=== PATIENT | male | born 1945 | race American Indian/Alaskan Native ===

== ENCOUNTER 2021-04-29 04:51 | Inpatient (IN) | payer MEDICARE, OTHER ==
[~2021-04-29] VITALS: Ht 167.6 cm; Wt 96.9 kg
[2021-04-29] MEDS ORDERED: LASIX40 MG PO (05:24)
[2021-04-29] MEDS ORDERED: METFORMIN HCL500 MG PO (05:25)
[2021-04-29] MEDS ORDERED: DILTIAZEM 24HR120 MG PO (05:25)
[2021-04-29] MEDS ORDERED: SILDENAFIL20 MG PO (05:26)
[2021-04-29] MEDS ORDERED: VITAMIN D325 MC2 PO (05:26)
[2021-04-29] MEDS ORDERED: TAMSULOSIN HCL0.4 MG PO (05:27)
[2021-04-29] MEDS ORDERED: LIPITOR10 MG PO (05:27)
[2021-04-29] MEDS ORDERED: HYDROCODON-ACE1 EA10 PO (06:15)
[2021-04-29] MEDS ORDERED: ONDANSETRON ODT8 MG PO (06:15)
--- NOTE | 2021-04-29 08:25 | NUR ---
PATIENT ARRIVED IN ROOM #115 AT 0825 VIA STRETCHER FROM ER WITH NURSING TOOL DESIGN DRAFTER. 3 REFRIGERATION REPAIR SUPERVISOR ON SHEET TO THE [place]. PATIENT HAVING ACTIVE DRY HEAVES ON ARRIVAL WHICH RESOLVED SPONTANEOUSLY. PATIENT ALSO HAVING PAIN IN HIS LEFT SHOULDER ON AARIVAL WHICH ALSO RESOLVED AFTER MOVING PATIENT TO THE BED. PATIENT STANDS AT THE EDGE OF THE BED TO USE URINAL AND PATIENT IS WEARING HIS OWN ATTENDS. VS AR STABLE AND PATIENT'S DAUGHTER LAURY OLIVARES GIVING MOST OF THE PATIENT'S HX PATIENT IS REALLY TIRED AND WANTING TO SLEEP. PATIENT EDUCATED ON HOW TO USE THE CALL LIGHT AND HE VERBALIZED UNDERSTANDING. PHARMACY TOOK MEDS AND BROUGHT THEM BACK TO THE ROOM FOR MED REC. CALL LIGHT IS IN REACH. PATIENT IN SR ON AND 02 SATS = 94-100% ON 6L/NC.
[2021-04-29] MEDS ORDERED: NITROGLYCERIN0.4 MG SL (09:15)
--- NOTE | 2021-04-29 10:44 | NUR ---
IN TALKIG WITH PATIENT AT THIS TIME.
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
--- NOTE | 2021-04-29 13:05 | NUR ---
PATIENT STARTED VOMITING WHILE I WAS STARTING HIS IV MEDS. 4MG IV ZOFRAN GIVEN. NAUSEA SUBSIDED AND PATIENT TOOK ALL PO MEDS INCLUDING PRN COUGH MEDS AND PO PAIN MEDS FOR 5/10 LOW BACK PAIN LEFT SHOULDER PAIN. PATIENT BACK IN BED RESTING AT THIS TIME. CALL LIGHT IN REACH.
--- NOTE | 2021-04-29 14:34 | NUR ---
CHECKING ON PATIENT'S PAIN AND NAUSEA. PAIN IN LOW BACK/LEFT SHOULDER DOWN TO A 2/10, BUT PATIENT HAS A AMIN NOW. PATIENT'S NAUSEA REMAINS GONE. VS ARE STABLE. PATIENT ON HIS RIGHT SIDE AT THIS TIME. PATIENT DENIES ANY OTHER CARE NEEDS AT THIS TIME. CALL LIGHT IS IN REACH.
--- NOTE | 2021-04-29 15:05 | NUR ---
PATIENT LAYING ON HIS LEFT SIDE NOW TURNED FROM HIS RIGHT SIDE. O2 SAT 94% ON 3L/NC HR=60 ON TELE. PATIENT HAS NO CURRENT CARE NEEDS.
--- NOTE | 2021-04-29 15:28 | NUR ---
PATIENT'S DAUGHTER LAURY CALLED AND WAS UP DATED ON PATIENT'S STATUS. PATIENT SUMMERS BEEN TELLING THIS RN THAT HE REALLY WOULD RATHER NOT GO BACK TO LIVE IN HIS SONS HOUSE BECAUSE HE THINKS HIS SON SHOULD BE MORE CARING AND HE WON'T LET THE PATIENT HAVE ANY KIND OF HEATER IN THE HOUSE AND PATIENT IS ALWAYS COLD.
--- NOTE | 2021-04-29 15:51 | NUR ---
THIS RN IN TO CHECK ON PATIENT AND PATIENT SAYS,"MY HEAD IS FEELING BETTER." SO PATIENT'S HEADACHE IS IMPROVING. TALKED WITH PATIENT ABOUT PRONING AND HE FEELS HE WILL BE ABLE TO TRY THAT IN AWHILE. PATIENT IS IN SEMIFOWLERS POSITION AT THIS TIME HAVING TURNED FROM HIS LEFT SIDE. O2 SAT=92% ON 3L/NC. URINAL EMPTIED AND GIVEN BACK TO PATIENT. PATIENT DENIES ANY OTHER CARE NEEDS AT THIS TIME. CALL LIGHT IS IN REACH.
--- NOTE | 2021-04-29 16:27 | NUR ---
RT TIED UP IN ER SO THIS RN GAVE PATIENT HIS NEB TREATMENT AND I NORCO FOR CONTINUED BACK PAIN 06/16 AT THIS TIME. PATIENT TRIED TO PRONE, BUT WAS TOO UNCOMFORTABLE AND IS ON HIS LEFT SIDE AT THIS TIME. PATIENT HAS NO OTHER CARE NEEDS OR REQUESTS AT THIS TIME. INFORMED PATIENT HIS DAUGHTER HAD CALLED OT CHECK ON HIM AND GAVE PATIENT HIS CELL PHONE REQUESTED. CALL LIGHT IS IN REACH.
--- NOTE | 2021-04-29 17:36 | NUR ---
BLOOD SUGAR CHECKED. PT SITTING UP IN BED EATING DINNER. NO FURTHER NEEDS AT THIS TIME. CALL LIGHT IN REACH.
--- NOTE | 2021-04-29 18:16 | NUR ---
PATIENT CALLED AND HAD VOIDED ON THE FLOOR MISSING HIS URINAL. THIS RN IN AND CLEANED UP THE FLOOR AND SET PATIENT UP TO EAT ON THE EDGE OF THE BED. THIS RN GAVE THE EVENING INSULIN. PATIENT WANTING SOME JUICE AND NURSING DIRECTOR SMB SALES GOING TO LOOK FOR LOW CALORIE JUICE FOR THE PATIENT. PATIENT HAD NO OTHER CARE NEEDS AT THIS TIME. CALL LIGHT IS IN REACH.
--- NOTE | 2021-04-29 19:10 | NUR ---
RECEIVED REPORT FROM DAY SHIFT RN. PATIENT IS RESTING IN BED WATCHING TV. NO NEEDS NOTED. CALL LIGHT IN REACH.
--- NOTE | 2021-04-29 20:45 | NUR ---
PATIENT ASSESMENT COMPLETED. PATIENTS VITALS TAKEN AND RECORDED. PATIENT REMAINS ON 3L VIA NC. PATIENTS URINAL EMPTIED. INTAKE AND OUTPUT RECORDED. PATIENTS SCHEDULED MEDICATIONS GIVEN PER ORDER. PATIENT REPORTS HEADACHE. PATIENT GIVEN PRN MEDICATION GIVEN FOR HEADACHE. PATIENT REQUEST MEDICATION FOR SLEEP, GIVEN PRN MEDICATION FOR SLEEP PER ORDER. PATIENT IS SL AND IV FLIUSHES WELL. PATIENT DENIES ANY SOB. FRESH ICE WATER PROVIDED. CALL LIGHT IN REACH.
--- NOTE | 2021-04-29 22:55 | NUR ---
PATIENT IS RESTING IN BED WITH EYES CLSOED, RR 18. CALL LIGHT IN REACH. PATIENT REMAINS ON 3L VIA NC AND IS 90% ON TELE #6
--- NOTE | 2021-04-30 00:48 | NUR ---
PATIENT IS RESTING IN BED WITH EYES CLOSED, TELE READINGS ARE WNL. PATIENT REMAINS ON 3L VIA NC. CALL LIGHT IN REACH.
--- NOTE | 2021-04-30 02:30 | NUR ---
V/S AND I&O'S TAKEN AND CHARTED BY PRIMARY RN MELANY. FRESH WATER AND CRACKERS PROVIDED PER PATIENT'S REQUEST.
--- NOTE | 2021-04-30 02:38 | NUR ---
PATIENTS VITALS TAKEN AND RECORDED. URINAL EMPTIED. INTAKE AND OUTPUT RECORDED. PATIENT DENIES ANY SOB. PATIENT REMAINS ON 3L VIA NC. PATIENT DENIES ANY PAIN AND HEADACHE HAS RESOLVED. PATIENTS ICE WATER REFRESHED AND CRACKERS PROVIDED PER PATIENT REQUEST. PATIENT DENIES ANY FURTHER NEEDS. CALL LIGHT IN REACH.
--- NOTE | 2021-04-30 03:58 | NUR ---
PATIENT CALLED AND REPORTED A HEADACHE, PRN MEDICATION GIVEN PER ORDER. PATIENT DENIES ANY SOB AND REMAINS ON 3L VIA NC. NO FURTHER NEEDS NOTED. CALL LIGHT IN REACH.
--- NOTE | 2021-04-30 05:41 | NUR ---
PATIENTS IS SITTING ON THE EDGE OF THE BED PLAYING A GAME ON HIS PHONE. PATIENT REMAINS ON 3L VIA NC. PATIENT DENIES ANY SOB. PATIENT REPORTS HEADACHE HAD IMPROVED. PATIENTS VITALS TAKEN AND RECORDED. INTAKE AND OUTPUT RECORDED. FRESH ICE WATER PROVIDED. NO NEEDS NOTED. CALL LIGHT IN REACH.
--- NOTE | 2021-04-30 08:01 | NUR ---
THIS RN RECEIVED SHIFT REPORT FROM MARY MOSLEY. CHECKED IN ON PATIENT AND HE SAYS HE IS HAVING A 8/10 HEADACHE. THIS RN GAVE 1 PO NORCO FOR THE AMIN. AM ASSESSMENT COMPLETE AND VS ARE STABLE. IO=590 THIS AMM AND WAS COVERD WITH INSULIN. HERE TO TALK WITH PATIENT. PATIENT'S CALL LIGHT IS IN REACH.
--- NOTE | 2021-04-30 10:09 | NUR ---
PATIENT'S AMIN HAS DROPPED DOWN TO A 2/10 AND PSEUDOPHED NOW GIVEN TO SEE IF THE AMIN CAN BE TOTALLY RELIEVED. PATIENT HAS NO OTHER CARE NEEDS AT THIS TIME. URINAL EMPTIED. CALL LIGHT IN REACH.
--- NOTE | 2021-04-30 11:30 | NUR ---
Plan for pt to dc to home tomorrow per 8:[address] Orlando. Pt sleeping not awakened.
--- NOTE | 2021-04-30 11:38 | NUR ---
MSGT=[id number] AND PATIENT COVERED WITH S/S INSULIN. PATIENT'S AMIN IS GONE AND HE HAS NO OTHER PAIN AT THIS TIME. PATIENT'S LUNCH HAS AARIVED AND HE IS VERY HAPPY WITH THE MEAL HE GOT. PATIENT'S CALL LIGHT IS IN REACH, URINAL EMPTIED, ICE WATER REFILLED, AND PATIENT HAS NO OTHER CARE NEEDS AT THIS TIME.
--- NOTE | 2021-04-30 12:10 | NUR ---
Pt sitting up on edge of bed. Denies co. Doing well today. NOtified by PT pt is requesting an electric wc. Discussed pt will need to go through his pcp for this.
--- NOTE | 2021-04-30 13:13 | NUR ---
PATIENT WAS SITTING UP ON EDGE OF BED. VITALS AND I&O'S CHARTED. PATIENT NOW IN BED RESTING, PT IN ROOM TO EVALUATE. CALL LIGHT IN REACH. NO FURTHER NEEDS AT THIS TIME.
--- NOTE | 2021-04-30 13:47 | EKG ---
[facility] [address] [place] [address] Signed Normal sinus rhythm Rightward axis Borderline ECG No previous ECGs available Confirmed by DAFNE WRIGHT MD ([id number]) on 04/30/2021 1:47:10 PM Electronically Signed By: DAFNE WRIGHT MD 04/30/21 1347 PATIENT NAME: ISABEL MUSTAFA Electrocardiogram DATE OF : 43 PHYSICIAN: DAFNE WRIGHT MD REPORT #: [id number] REPORT IS CONFIDENTIAL AND NOT TO BE RELEASED WITHOUT AUTHORIZATION
--- NOTE | 2021-04-30 14:40 | NUR ---
THIS RN IN TO SEE PATIENT. PATIENT IS IMPROVING AND TELE WITH O2 SAT HAS BEEN DC'D. PATIENT TAKEN A LOW CALORIE CRANBERRY JUICE HE REQUESTED. PATIENT SAYS HIS AMIN,BACK PAIN, AND LEFT SHOULDER PAIN ARE STILL GONE AND HE DOES NOT NEED ANY PAIN MEDICATION AT THIS TIME. PATIENT COMPLAINING OF FEELING VERY WEAK WHEN TRYING TO STAND OR WALK, WHICH PT WAS INFORMED OF EARLIER WHEN ELISSA WORKED WITH HIM. PATIENT DENIES ANY OTHER CARE NEEDS AT THIS TIME. CALL LIGHT IS IN REACH.
--- NOTE | 2021-04-30 14:50 | NUR ---
DAUGHTER GIVEN UPDATE.
--- NOTE | 2021-04-30 16:35 | NUR ---
PATIENT'S 1700 MEDS GIVEN ALONG WITH 1NORCO AND PSEUDOPHED FOR A RETURNING AMIN OF 09/15. PATIENT DENIED ANY OTHER CARE NEEDS AND I WILL BE BACK TO GIVEN S/S INSULIN COVERAGE FOR GVQS=282. CALL LIGHT IS IN REACH.
--- NOTE | 2021-04-30 17:05 | NUR ---
THIS RN BACK INTO AND GAVE S/S INSULIN COVERAGE FOR 325 FSBS. PATIENT'S MEAL SET UP FOR HIM OVER THE BED HE SAYS HIS HEAD HURTS TO MUCH SIT ON THE EDGE OF THE BED. PATIENT ALSO GIVEN ANOTHER GLASS OF LOW NADINE CRANBERRY JUICE. PATIENT DENIED ANY OTHER NEEDS AT THIS TIME. CALL LIGHT IS IN REACH.
--- NOTE | 2021-04-30 18:12 | NUR ---
PATIENT IN BED RESTING AT THIS TIME. VITALS AND I&O'S CHARTED. CALL LIGHT IN REACH. NO FURTHER NEEDS AT THIS TIME.
--- NOTE | 2021-04-30 18:36 | NUR ---
PATIENT CALLED AND HAS SPILLED ICE WATER ALL OVER HIMSELF. THIS RN WENT IN AND HELPED PATIENT CHANGE HIS GOWN AND THIS RN CHANGED THE WET LINENS. AISHAN SAID HIS AMIN IS IMPROVING. PATIENT HAD NO OTHER CARE NEEDS AT THIS TIME. CALL LIGHT IS IN REACH.
--- NOTE | 2021-04-30 19:50 | NUR ---
RECEIVED REPORT FROM DAY SHIFT RN. PATIENT IS RESTING IN BED. NO NEEDS NOTED. CALL LIGHT IN REACH.
--- NOTE | 2021-04-30 21:48 | NUR ---
PATIENT ASSESMENT COMPLETED. PAIENTS VITALS TAKEN AND RECORDED. PATIENTS URINAL EMPTIED AND INTAKE AND OUTPUT RECORDED. PATIENTS SCHEDULED MEDICATIONS GIVEN PER ORDER. PATIENT GIVEN PRN MEDICATION FOR SLEEP. PATIENT REPORTS HEADACHE, PRN MEDICATION GIVEN PER ORDER. PATIENT PROVIDED FRESH WATER. PATIENT REMAINS ON 3L VIA NC. PATIENT DENIES ANY FURTHER NEEDS. CALL LIGHT IN REACH. BED ALARM ON FOR SAFETY.
--- NOTE | 2021-04-30 22:40 | NUR ---
PATIENT GIVEN PRN MEDICATION FOR5 NASAL CONGESTION. PATIENT PROVIDED WITH FRESH WATER. URINAL EMPTIED. PATIENT REMAINS ON 3L VIA NC. PATIENT DENIES ANY FURTHER NEEDS. CALL LIGHT IN REACH. BED ALARM ON FOR SAFETY.
--- NOTE | 2021-04-30 23:26 | NUR ---
PATIENT ASSISTED A SBA W/FWW TO STAND AT BEDSIDE TO USE URINAL. PATIENT WAS ABLE TO VOID. PATIENT ASSISTED TO CHANGE ATTEND HE WAS INCONTINENT. PATIENT IS BACK IN BED RESTING. PATIENT DENIES ANY FURTHER NEEDS. CALL LIGHT IN REACH. BED ALARM ON FOR SAFETY.
--- NOTE | 2021-05-01 01:25 | NUR ---
PATIENT GIVEN PRN MEDICATION FOR A 4/10 HEADACHE. PATIENT PROVIDED FRESH WATER. NO FURTHER NEEDS NOTED. CALL LIGHT IN REACH. BED ALARM ON FOR SAFETY.
--- NOTE | 2021-05-01 02:56 | NUR ---
PATIENT ASSISTED TO STAND AT THE BEDSIDE TO USE THE URINAL. PATIENT WAS ABLE TO VOID. PATIENT IS BACK IN BED RESTING. NO FURTHER NEEDS NOTED. CALL LIGHT IN REACH. BED ALARM ON FOR SAFETY.
--- NOTE | 2021-05-01 04:45 | NUR ---
PATIENT IS RESTING IN BED WITH EYES CLSOED, RR 19. CALL LIGHT IN REACH. BED ALARM ON FOR SAFETY.
--- NOTE | 2021-05-01 04:51 | NUR ---
PATIENT RESTED ON AND OFF THROUGHOUT THE SHIFT. PATIENT ON 60G DIET, TOELRATING WELL, DENIED NAUSEA, AND DECREASED APPETITE NOTED. PATIENT IS ON 3L VIA NC. PATIENT IS INCONTINENT AT TIMES. STANDS AT BEDSIDE TO USE URINAL. ACAPALLA AND IS PER RT. SL PER ORDER. SBA W/FWW. SOB W/ACTIVITY. NON-PRODUCTIVE COUGH. CHRONIC HEADACHES-PRN MEDICATION GIVEN. BS CHECKS AND SS PER ORDER. BED ALARM FOR SAFETY.
--- NOTE | 2021-05-01 05:34 | NUR ---
PATIENT ASSISTED TO ATAND AT THE BEDISDE TO USE URINAL. PATIENT ABLE TO VOID. PATIENTS ATTEND DRY AT THIS TIME. VITALS TAKEN AND RECORDED. PATIENTS INTAKE AND OUTPUT RECORDED. PATIENT BACK IN BED RESTING. BED ALARM ON FOR SAFETY. CALL LIGHT IN REACH. ICE WATER REFILLED. IV FLUSHED AND PATENT
--- NOTE | 2021-05-01 07:15 | NUR ---
report recieved from night worker RN, pt awake and alert on 3L nc, bed alarm on for saftey denies any needs at the moment
--- NOTE | 2021-05-01 08:05 | NUR ---
RN in room to do morning blood glucose check, pt laying in bed, denies any needs at the moment
--- NOTE | 2021-05-01 08:47 | NUR ---
RN in room to do morning assesment and morning medications vital signs done, WNL, denies sob, bed alarm on for saftey educated on importance of calling for help, no other needs at the moment, while i was in room pt daughter called, updated on pt status and questions answered.
--- NOTE | 2021-05-01 09:22 | NUR ---
RN IN ROOM TO ADMINISTER REMDESIVIR INFUSION AND PAIN MEDICATION, STATES 10/16 HEADACHE, CHRONIC PRN NORCO GIVEN
--- NOTE | 2021-05-01 09:45 | NUR ---
Spoke with pt. He has a multitude of minor aches and complaints today. Very upset he has Covid following vaccination and booster. He is very concerned he is not doing well. Discussed he is doing very well and almost at baseline.
--- NOTE | 2021-05-01 11:13 | NUR ---
Called and spoke with daughter, Arcelia, updated pt will possibly dc to home tomorrow. She states she will be able to transport. UPdated he had asked for an electric wc and he will need to go through his PCP for this. She states they have already started eval for a wc, but pt refused to answer the questions and was then denied an electric wc. She states pt has been having issues with his memory and aging. She also states he does not want to go home as she works and he would like her to stay with him all the time. She denies any other needs. Would like PT, we discussed homebound status and per daughter pt drives himself. He is not homebound. Daughterfeels they would be able to get pt to OP therapy. Will notify Dr. Jacinto.
--- NOTE | 2021-05-01 11:39 | NUR ---
RN in room to check blood glucose, 269, new attends provided as pt spilled urinal denies any other needs at the moment states pain is better after headache
--- NOTE | 2021-05-01 12:10 | NUR ---
rn in room to deliver lunch tray and administer 5 units of insulin for 269, spot checked o2 94% on 3L denies any needs at tge moment RT in room
--- NOTE | 2021-05-01 13:22 | NUR ---
RN IN ROOM TO DO VITAL SIGNS AND ADMINISTER SMEGLEE 10 UNITS, PT ASSISTED TO THE CHAIR 1 PERSON WITH WALKER, PT EDUCATED NOT TO GET UP WITHOUT ASSISTANCE, CALL LIGHT WITHIN REACH
--- NOTE | 2021-05-01 14:38 | NUR ---
PATIENT IN ROOM YELLING, SAID, "I WAS DOING MY BREATHING EXERCISES." PATIENT FOUND ON KNEES WITH HANDS ON BED. PATIENT DOES NOT HAVE UPPER OR LOWER BODY STRENGTH TO HELP HIMSELF. BLACK PERALTAING USED TO GET PATIENT OFF OF FLOOR. PATIENT SEEMS TO LACK ANY INSIGHT INTO LIMITING HIS ACTIVITY WITHOUT HELP OF NURSING STAFF.
--- NOTE | 2021-05-01 14:41 | NUR ---
PT CALL LIGHT ON. PT STATES "I'VE FALLEN AND I CAN'T GET UP." THIS RN TO ROOM. PT FOUND NEXT TO CHAIR ON HIS KNEES. 2 PERSON ASSIST ATTEMPT TO STAND. PT UNABLE TO STAND. BLACK LIFT BACK TO BED. PT REPORTS HE WAS GETTING UP TO GET HIS "BREATHING TOY" AND HIS "FOOT CAME OUT FROM UNDER ME AND I JUST FELL DOWN." ASSESSMENT DONE. NO CHANGES NOTED TO PREVIOUS ASSESSMENT BUT FOR AN ABRASTION TO RIGHT KNEE AND WEAKNESS PER PT IN ALL EXTREMITIES. STRENGTH EQUAL BILATERALLY. NO ADDITIONAL NEURO S/S NOTED. MD UPDATED. VITALS SIGNS STABLE. PT RESTING IN BED WITH HEAD OF BED ELEVATED TO 25 DEGREES. PT DENIES ADDITIONAL REQUESTS OR COMPLAINTS. CALL LIGHT WITHIN REACH. BED RAILS UP. BED ALARM ON. PTS PRIMARY RN UPDATED.
--- NOTE | 2021-05-01 14:56 | NUR ---
PATIENT'S DAUGHTER LAURY, CALLED AND NOTIFIED THAT PATIENT FELL TO HIS KNEES ON THE FLOOR, NOTIFIED THAT PATIENT HAD SCRAPE ON LEFT KNEE.
--- NOTE | 2021-05-01 15:49 | NUR ---
RN IN ROOM TO DO ASSESMENT AND ADMINSITER 1500 MEDICATION, PT IN BED RESTING IN BED, BED ALARM ON, DENIES ANY PAIN ON 3L NC, VSS, NO NEEDS AT THE MOMENT
--- NOTE | 2021-05-01 17:19 | NUR ---
RN IN ROOM TO DELIVER DINNER TRAY, DINNER TIME MEDICATIONS GIVEN, BLOOD GLUCOSE 240, 5UNITS OF HUMALOG GIVEN PER SLIDING SCALE, NO OTHER NEEDS.
--- NOTE | 2021-05-01 18:27 | NUR ---
RN IN ROOM TO DO VITAL SIGNS AND I&OS, PT ASSITED BACK TO LAY DOWN AFTER EATING DINNER SITTING AT THE EDGE OF THE BED, BED ALARM ON, CALL LIGHT WITHIN REACH DENIES ANY NEEDS AT THE MOMENT
--- NOTE | 2021-05-01 19:15 | NUR ---
SHIFT REPORT RECEIVED FROM DAYSHIFT RN VERENA. pt AWAKE AND RESTING IN BED, 4LNC IN PLACE PER SHIFT REPORT. pt COVID +, BED ALARM ON FOR SAFETY AND CALL LIGHT IN REACH. NO NEEDS OR CONCERNS VERBALIZED AT THIS TIME.
--- NOTE | 2021-05-01 21:17 | NUR ---
PT CALLED NEAR 2045 TO USE THE URINAL. INTO ROOM, SITTING ON EDGE OF BED, ALARM SOUNDING, BUT NOT TRYING TO GET UP. USED FWW TO STAND, WEAK, AND WOBBLY, INCONT URINE IN ATTENDS, VOIDED IN URINAL 125. ATTEND CHANGED, SOB NOTED WITH EXERTION. HAD PT SIT ON THE EDGE OF BED, WHILE VS AND I/O COMPLETED. SATS 97 ON 3 L. ABLE TO SELF PUT FEET INTO BED, AND REPOSITIONED SELF. MEDICATIONS GIVEN PER MARS. PT CONCERNED ABOUT HIS "SHOULDER WEAKNESS". KNEES WEAK, LEGS WEAK. PT CONCERNED ABOUT THE FALL. THERAPEUTIC COMMUNICATION, REMINDER THAT BED ALARM WILL SOUND IF HE GETS TO EDGE OF BED, BUT AWARE THAT IT IS FOR HIS SAFETY.
--- NOTE | 2021-05-01 21:30 | NUR ---
ASSESSMENT COMPLETE, SCHEDULED MEDS ALREADY GIVEN BY CONSULTING PROJECT DIRECTOR KAREN. THIS RN IN ROOM TO GIVEN PRN TYLENOL FOR 3-4/10 PAIN R/T HEADACHE AND PRN TRAZODONE (SEE EMAR). pt AWAKE AND A/O, VSS. pt ON 3LNC, LUNG SOUNDS CLEAR, FAINT CRACKLES NOTED IN LOWER LOBES. 3LNC REMAINS IN PLACE. NO FURTHER NEEDS, CALL LIGHT IN REACH AND BED ALARM ON FOR SAFETY.
--- NOTE | 2021-05-01 22:43 | NUR ---
pt RESTING IN BED, SEMIPRONE IN BED. 3LNC IN PLACE, NO DISTRESS NOTED. CALL LIGHT IN REACH. BED ALARM ON FOR SAFETY.
--- NOTE | 2021-05-02 00:04 | NUR ---
pt RESTING IN BED, EYES CLOSED. RR EVEN AND UNLABORED, SPO2 95% ON 3LNC, HR 70'S. pt AWOKE, ASSISTED WITH USING URINAL. BED ALARM REMAINS ON AND CALL LIGHT IN REACH.
--- NOTE | 2021-05-02 02:09 | NUR ---
pt RESTING IN BED, LAYING ON HIS RIGHT SIDE. RR EVEN AND UNLABORED, NO DISTRESS OR S/SX OF SOB NOTED. HOB ELEVATED, pt APPEARS COMFORTABLE OVERALL. WILL CONTINUE TO MONITOR. CALL LIGHT IN REACH.
--- NOTE | 2021-05-02 03:14 | NUR ---
BED ALARM SOUNDING @0230. PT ATTEMPTING TO GET UP ON THE SIDE OF THE BED TO USE THE URINAL. UNABLE TO GET TO A SITTING POSITION. COMPLAINS OF WEAKNESS. ASSISTED PT. UNABLE TO STAND TO GET ATTENDS DOWN, ATTENDS SOAKED PRIOR TO ATTEMPT. TRIED TO STAND ONE MORE TIME, AND LEGS COULDN'T HOLD HIS WEIGHT AND HE DROPPED BACK TO THE BED. ASSISTED INTO BED, ASSIST OF ANOTHER RN, PT ASSISTED IN ROLLING, NOTED DURING INCONT CARE, LEFT SIDE OF GROIN, RED, SHINY, SMELLY, WITH OPEN EXCORIATED AREAS SCATTERED. BARRIER CREAM APPLIED, PLAN TO GET ORDER FOR DESENEX POWDER. REPOSITINED IN BED WITH ASSIST OF SECOND RN, PT COMPLAINED OF A 7/10 HEADACHE. @0247 MEDICATED WITH NORCO PRN PER MARS. COVERED, PERSONAL SUPPLIES WITHIN REACH. PT COMPLAINING OF INCREASED WEAKNESS OVER THE WEEK, THURSDAY HE WAS ABLE TO STAND AT BEDSIDE TO USE URINAL, THURSDAY REQUIRED ASSIST, HAD FALL THURSDAY. THE INABILITY TO DO SELF CARE IS DEPRESSING HIM. BED ALARM PLACED, CALL LIGHT WITHIN REACH. CONTINUES TO RECEIVE PT DURING DAY. PRIMARY RN AWARE OF THIS ALL.
--- NOTE | 2021-05-02 05:52 | NUR ---
ASSESSMENT COMPLETE, pt ASSISTED WITH USE OF URINAL. NO ACUTE CHANGES TO ASSESSMENT. DRY ATTENDS IN PLACE, REDDNESS NOTED TO LEFT GROIN, BARRIER CREAM IN PLACE. WILL MONITOR. pt ASSISTED WITH BOOSTING HIMSELF IN BED, SOB NOTED, BRIEFLY TITRATED FROM 3LNC TO 4LNC AND BACK DOWN TO 3LNC BASELINE. BED ALARM ON. CALL LIGHT IN REACH. VSS I&o'S COMPLETE.
--- NOTE | 2021-05-02 07:20 | NUR ---
report recieved from slot shift supervisor RN, pt on 3l nc , resting in bed call light radhain reach, bed alarm on no needs at the moment
--- NOTE | 2021-05-02 09:13 | NUR ---
RN in room to do morning assement and medications, pt resting in bed, denies pain at the moment, pt complaining of increased weakness, Dr Jacinto in room to round on pt,
--- NOTE | 2021-05-02 10:00 | NUR ---
rn in room to disconrct iv, pt resting in bed finished eating breakfast denies any needs at the moment
--- NOTE | 2021-05-02 10:30 | NUR ---
Spoke with pt and he again feels he has multiple issues. States he feels he has had a stroke. He will have an MRI today. Pt states he is very happy with the food. Does not feel he is ready for dc to home.
--- NOTE | 2021-05-02 11:10 | NUR ---
RN IN ROOM TO DO MRI QUESTIONS.
--- NOTE | 2021-05-02 12:32 | NUR ---
pt taken down to MRI
--- NOTE | 2021-05-02 13:10 | NUR ---
PT BACK FROM MRI, LUNCH PROVIDED 5 UNITS OF INSULIN GIVEN TO TREAT BLOOD GLUCOSE OF 258 , NO OTHER NEEDS AT THE MOMENT
--- NOTE | 2021-05-02 14:50 | NUR ---
TELLY SAUCEDO CALLED AND UPDATED ON CONDITION
--- NOTE | 2021-05-02 15:30 | NUR ---
RN IN ROOM TO ANSWER CALL LIGHT PT REPORTS HE VOIDED IN HIS ATTENDS, PARTH CARE DONE NEW BREIF PLACED, DENIES PAIN , HAVING A COUGHING SPELL PRN COUGH SYRUP PROVIDED.
--- NOTE | 2021-05-02 17:04 | NUR ---
DINNER TRAY DELIVERE 1700 MEDICATIONS ADMINISTERED 5 UNITS OF INSULIN GIVEN FOR A BLOOD GLUCOSE OF 257, SITTING UP IN BED DENIES ANY NEEDS AT THE MOMENT
--- NOTE | 2021-05-02 17:30 | NUR ---
rn in room to do vital signs and i&os requesting help with the urinal fresh water provided no other needs at the moment
--- NOTE | 2021-05-02 19:05 | NUR ---
ON RESP ISOLATION PRECAUTIONS. USED CALL LIGHT. VOIDED SMALL AMOUNTS URINE. SOB WITH EXERTION . ON 3LNC, THAT HE HAS TAKEN OFF, BACK ON. SLIGHT HAND TREMORS NOTED. C/O UNABLE TO USE R THUMB. HAD MRI EARLIER PER C/O R SIDED PAIN.
--- NOTE | 2021-05-02 19:57 | NUR ---
USED CALL LIGHT ON 3LNC IN PLACE, VOIDID SMALL AMOUNT YELLOW URINE. ATTENDS IN PLACE. COOP. CALL LIGHT AND FLUIDS AT HANDS REACH. WATCHING TV
--- NOTE | 2021-05-02 20:35 | NUR ---
USES CALL LIGHT, USED URINAL, VOIDING SMALL AMOUNTS MEDIUM YELLOW URINE. TOLERATING LIQUIDS WELL NO EMESIS. ON 3L NC. RESPIRATORY ISOLATION PRECAUTIONS. LUNGS DIM T/O, SOB WITH EXERTION NOTED. HAS MOIST PRODUCTIVE ON OCCASSION OG WHITE THICK PHLEGM. TESSALON PERLES AND COUGH SYRUP GIVEN. MEDICATED WITH NORCO 1 TAB GENERALIZED PAIN AND H/A.COOP WITH TURNING AND ASSESSMENTS. SL LAC PATENT. LARGE ABD, HOS, DECLINED SENNA TABS. UNKNOWN LBM DATE. ATTENDS IN PLACE. DESENEX TO ABD PANNUS AREA. EDEMA TO LE. TRACE, LEGS ELEVATED. COLD TO TOUCH. STATED NORMAL. CBG 243 RECEIVED 5 UNITS HUMOLOG SS INSULIN, PT STATED HE IS AWARE OF S/SX OF HYPO/HYPERGLYCEMIA. HOB AND LEGS ELEVATED TO COMFORT. CALL LIGHT AND FLUIDS AT HANDS REACH
--- NOTE | 2021-05-02 22:30 | NUR ---
RESATING, O2 3L NC, CHRONIC, NO DISTRESS, HOB AND FOB ELEVATED TO COMFORT. CALL LIGHT AND FLUDISA T HANDS REACH. ON RESP ISOLATION PRECAUTIONS. EYES CLOSED, NO DISTRESS
--- NOTE | 2021-05-02 23:25 | NUR ---
used call light. cont on resp precautions. voided small amounts. c/o being hungry, sandwich box given. Pt has no deficits using R hand/arm. no c/o pain. fluids and call light at hands reach
--- NOTE | 2021-05-03 02:28 | NUR ---
CONT ON RESP ISOLATION PRECAUTIONS. ON 3LNC. CALL LIGHT AND FLUIDS AT HANDS REACH., EYES CLOSED, NO DISTRESS
--- NOTE | 2021-05-03 04:12 | NUR ---
Pt continues on Respiratory Isolation precautions. O2 3L NC at this time. chronic 4LO2 at home. lungs dim t/o. sob with exertion. c/o R sided weakness. pulses palpable. was able to use R hand well when feeding self, but c/o weakness other times. tolerating liquids well. CBG 243, received ss insulin. large abd firm, declined senna tabs. uses attend due to dribbling, voids using urinal at times. anxious, redirectable. edema to LE elevated, helped with repositioning. uses call light
--- NOTE | 2021-05-03 05:08 | NUR ---
USED URINAL, COOP WITH TURNING AND REPOSITIONING. HAD TAKEN O2 OFF, SATS 91% ON ROOM AIR, SATS 94% ON 3LNC, SOB WITH EXERTION. LUNGS DIM T/O. COOP
--- NOTE | 2021-05-03 06:12 | NUR ---
c/o 8/10 h/a. declined ice packa to back of head. medicated with Tylenol 500mg po and Pseudoephineprhine 30mg, repositioned. O2 3LNC in place. tolerating liquids well. uses call light. On resp Isolation precautions
--- NOTE | 2021-05-03 07:00 | NUR ---
used call light. voided in urinal and was incontinent inattends, clean attends given, helped with turning. sob with exertion. improved c/o h/a. coop.
--- NOTE | 2021-05-03 07:15 | NUR ---
report recieved from warehouse worker 2nd shift RN, pt resting in bed, bed alarm on on 3L nc, RR even and nonlabored, deneis any needs at the moment
--- NOTE | 2021-05-03 09:36 | NUR ---
RN IN ROOM TO DO MORNING ASSESMENT AND MEDICATIONS PT AWAKE ALERT, "STATES HE DOESNT FEEL GOOD" PARTH CARE DONE, POWDER APPLIED TO PARTH AREA WARM WASH CLOTH TO WIPE FACE, GOWN CHANGED, HOYERED UP TO UP THE CHAIR, CHAIR ALARM ON, CALL LIGHT WITHIN REACH EDUCATED TO NOT GET UP WITHOUT STAFF.
--- NOTE | 2021-05-03 11:30 | NUR ---
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 ATTEMPTED TO CALL DAUGHTER BUT NO ANSWER AT THE MOMENT .
--- NOTE | 2021-05-03 11:30 | NUR ---
CALLED TO PT ROOM. PHYSICAL THERAPY AND HELP DESK SUPPORT WITH PATIENT WHO IS ON THE FLOOR. PT REPORTS PT WAS MARCHING IN PLACED WHEN HIS KNEES BUCKLED AND HE FELL ON CHAIR THEN SLID TO FLOOR. PT IS ASSESSED AND HAS NO VISIBLE WOUNDS TO BODY. PT PLACED ON BLACK, AND PUT BACK IN BED. PT REPORTS BOTH KNEES ARE PAINFUL FROM BUCKLING. DR VICTORIA NOTIFIED AND BILAT KNEE XRAYS ORDERED. PT CHANGED TO ROOM CLOSER TO THE NURSING STATION. PRIMARY NURSE AND RHEUMATOLOGY NURSE NOTIFIED.
--- NOTE | 2021-05-03 12:20 | NUR ---
RN in room ro do insulin pt complaining of headache prn tylenol, xray here to do xray of knees
--- NOTE | 2021-05-03 13:56 | NUR ---
PER DR. VICTORIA PATIENT IS CURRENTLY CONSIDERING PLACEMENT HIS PROGRESS HERE HAS DECLINED. WILL CONTACT PATIENT AND HIS DAUGHTER TO DISCUSS FURTHER PLACEMENT.
--- NOTE | 2021-05-03 14:00 | NUR ---
DAUGHTER CALLED AND UPDATED ON PT CONDITION, ANSWER QUESTIONS NO OTHER NEEDS AT THE MOMENT
--- NOTE | 2021-05-03 15:30 | NUR ---
RN IN ROOM TO DO ASSESSMENT, PT AWAKE AND ALERT DENIES ANY NEEDS COMPLAINING OF WEAKNESS. ENCOURAGED PT TO CONTINUE RANGE OF MOTION EXERCISES
--- NOTE | 2021-05-03 19:15 | NUR ---
PT ASKING TO GET ONTO THE BEDPAN, PT UNABLE TO HAVE BM AT THIS TIME, PT VS DONE
--- NOTE | 2021-05-03 20:25 | NUR ---
IN TO ASSIST PT OFF THE BEDPAN, ACCUCHECK COMPLETE (see eMAR), NO FURTHER NEEDS AT THIS TIME
--- NOTE | 2021-05-03 23:45 | NUR ---
IN TO ASSIST PT WITH URINAL, NO FURTHER NEEDS AT THIS TIME
--- NOTE | 2021-05-04 01:20 | NUR ---
Pt resting, on 4L NC, hob elevated, eyes closed, no ditress, call light and fluidsa t hands reach.
--- NOTE | 2021-05-04 02:26 | NUR ---
Pt awake, O2 4LNC, tacheipneic and sob with exertion when turning. HOB elevated. helped with repositioning and turning. voided using urinal, no bm. call light and fluids at bedside.
--- NOTE | 2021-05-04 03:09 | NUR ---
ASSISTED PT ONTO BEDPAN, GIVING PT SOME PRIVACY
--- NOTE | 2021-05-04 03:46 | NUR ---
CONTINUES TO BE VERY ANXIOUS, UP TO BEDPAN. LARGE AMOUNT OF RECTAL GAS PRESENT NOW AND T/O THIS SHIFT. NO BM. NO SMEAR NOTED WITH WIPING EITHER. WAS INCONTINENT OFURINE. CLEAN ATTENDS AND BARRIER CREAM APPLIED, REASSURED VERABLYY. MEDICATED WITH TYLENOL 500MG PO AND PSEUDOEPINEPHRINE 60MG PER NASAL CONGESTION. TURNED AND REPOSITIONED, o2 4LNC. CALMER. LE ELEVATED
--- NOTE | 2021-05-04 05:23 | NUR ---
Pt has been awake most of this shift. On chronic 4LNC, lungs dim with FC. very anxious, verbal reassurance needed and effective several times this shift. SL patent. Continues to c/o weakness R arm and leg, helped with repositioning and turning. Medicated with [place] X1 and Tylenol X1 h/a, declined ice packs. partially to good effectiveness. Medicated with Psedoephinephrine 2 tabs per nasal congestion, stated effectiveness. tolerating liquids well. Pt aware of s/sx of hypo/hyperglycemia. edema to LE, elevated off and on. HOB elevated to his comofrt. no bm this shift. releaseing rectal gas. abd large non tender was incontinent of urine in attends, skin care.
--- NOTE | 2021-05-04 06:15 | NUR ---
IN TO GET VS, I&Os DONE, ICE WATER FILLED, PT IS FEELING UNCOMFORTABLE, ATTEMPTED TO HELP PT WITH REPOSITIONING, LET PT KNOW WE ARE TRYING TO FIND THINGS TO HELP PT FEEL BETTER, PT ACCEPTING OF ANSWER, NO FURTHER NEEDS AT THIS TIME
--- NOTE | 2021-05-04 07:04 | NUR ---
CONT TO C/O CONSTIPATION. MEDICATD WITH DULC SUPP. NO BM NOTED ON GLOVED FINGER. ABD FIRM, LARGE USUAL.
--- NOTE | 2021-05-04 07:15 | NUR ---
THIS RN RECEIVED REPORT FROM ADIA RN. ADIA JUST GAVE SUPPOSITORY TO ASSIST IN PT HAVING A BM. BED ALRAMS ON
--- NOTE | 2021-05-04 08:30 | NUR ---
THIS RN IN PTS ROOM TO GIVE LUIS GMEDS. DREW OLVERA IN PTS ROOM. PT HAS MULTIPLE COMPLAINTS THIS AM: HIPS HURT, STILL HAS A HEADACHE, STILL NEEDS TO POOP MORE, UNCOMFTABLE, NOT HUNGRY. PT IS COOPERATIVE STATING "DO WHATEVER" PT AGREEABLE TO TAKE BOWEL MEDS. PT DID HAVE A SMALL BM THIS AM. THIS RN ALSO PROVIDED PT WTIH 1 NORCO FOR PAIN. THIS RN ENCOURAED TO TAKE BETTER DEEP BREATHS TO CALM HIMSELF- PT APPEARS ANXIOUS- UNDERSTANDABLY. THIS RN TO REQUST ANXIETY MEDS PRN. BED ALRAM ON AND NON SKID SOCKS IN PLACE.
--- NOTE | 2021-05-04 09:39 | NUR ---
PT UP TO CHAIR BY WILIAN HERNANDEZ. CHAIR ALARM ON, CALL LIGHT WTIHIN REACH, PT WITHIN SIGHT OF NURSES STATION
--- NOTE | 2021-05-04 12:15 | NUR ---
THIS RN IN PTS ROOM TO GIVE PT SCHEDULED TYLENOL AND LIDOCAINE PATCH- LATE DUE TO WAITING ON PHARMCAY TO ACKNOLEDGE ORDERS. THIS RN HAD A DISCUSSION WITH PT ABOUT NEEDING TO CALL STAFF WHEN HE HAS TO HAVE A BM NOT WHILE HAVING BM. THIS RN DISUCSSED WITH PT THAT HE NEEDS TO BE USING HIS URINAL AND NOT BEING INCONTINENT. PT GAVE THIS RN ATTITUDE ABOUT THIS RN'S EDUCATION. THIS RN DISCUSSED WITH PT HIS CONCERNS AND MADE A PLAN WITH HIM ABOUT CALLING. THIS RN CHANGED PT. PT HAD A SMEAR BM.
--- NOTE | 2021-05-04 15:15 | NUR ---
THIS RN IN PTS ROOM TO GIVE PT MEDS. THIS RN ASKED IF PT NEEDED ANYTHING- PT STATED THAT THAT HE WAS HURTING. WHEN THIS RN WAS TO COME BACK IN PT WAS AUDIBLY NOTED TO BE CRYING OUT IN PAIN- PT STATED THAT HIS PAIN WAS IN HIS BACK- THIS RN ASKED IF PT HAD ATTEMPTED TO REPOSITION HIMSELF- PT DENIES ATTMPTING TO TRY. THIS RN PROVIDED PT WITH SCHEDULED TYLENOL AND ASSISTED PT TO LAY ON HIS LEFT SIDE. BEFORE STAFF LEFT ROOM PT STATING HOW UNCOMFRTABLE HE WAS- THIS RN ASKED IF IT WAS BETTER THAN BEFORE- PT STATES YES. PT WAS CHANGED DUE TO DRIBBLING IN ATTENDS AND "CAPRICE MATA" = SMEAR.
--- NOTE | 2021-05-04 16:20 | NUR ---
ROUNDED ON PT. PT ON RIGHT SIDE ON RA. AGINAL BREATHING PRESENT. RR RATE IS 4. PT DOES NOT APPEAR TO BE IS PAIN OR DISCOMFORT.
--- NOTE | 2021-05-04 17:00 | NUR ---
THIS RN IN PTS ROOM TO GET PT MORE COMFORTABLE. PT STILL CRYING OUT. PT ATEMPTED TO REPOSITION HIMSELF. PT ABLE TO BETTER REPOSITON HIMSELF WHEN STAFF PRESENT- PT ABLE TO SCOOTCH HIMSELF UP IN BED. THIS RN PROVIDED PT WITH 1 NORCO AND HEAT PACK AND GOT PT TO SIT UPRIGHT MORE TO ASSIST IN THE PAIN. PT ABLE TO STATE THAT HE WAS COMFORTABLE PT ONLY ABLE TO EAT GRAPES FOR DINNER AND NOT INTERESTED IN ANYTHING ELSE. BED ALARM ON
--- NOTE | 2021-05-04 21:48 | NUR ---
pt very anxious, restless, fidgetty in bed. O2 4LNC. helped with repositioning. Has been placed on bedpan 3X while RN in room, passing gas, no bm. Abd large soft, CHRISTIAN, has had several bm's this shift. was Incontinent of urine, attends changed, barrier cream, new attends. SL to LA patent. edema trace LE. unable to find Lidoderm patch, medicated with [place] 1 tab per back and R sided pain, no leg or arm deficits noted during assessment or when he was pulling self in bed. Medicated with Tessalon perles x1 per moist nonproductive occ cough, medicated with trazadone 25mg po per insomnia and Vistaril 25mg po per increaed anxiety. alert and oriented. following instructions, irritable at time but easily redirectable. Hyperventilating and anxious, reassured verbally, calmer. toleraing liquids well. no edema. Fluids and call light at bedside, snacks given on requests. CBG done received 1 unit ss Insulin
--- NOTE | 2021-05-04 23:25 | NUR ---
PT C/O R HIP/LEG PAIN. ASPERCREAM APPLIED TO R NECK, R SHOULDER, R BACK, R HIP AND R LEG, DECLINES HOT/ICED PACKS. MOVING LEGS WELL. PULSES PALPABLE, NO ABNORMALITIES PALPATED DURING INGUINAL ASSESSMENT HE STARTED C/O INGUINAL PAIN AFTER ASPERCREAM WAS APPLIED. PT WAS MEDICATED WITH NORCO EARLIER. MOVING AND REPOSITIONING SELF IN BED WELL, ABLE TO GRAB RAILS WITH R HAND WELL, PUSEHD SELF IN BED BY BENDING R LEG TOO. DR VICTORIA WAS NOTIFIED AND NEW ORDERS TO STOP NORCO, GIVE OXYCODONE 5-10MG PO Q4HPRN PAIN AND XR OF R HIP AND SHOULDER ORDERED, XR NOTIFIED.
--- NOTE | 2021-05-04 23:42 | NUR ---
PT WAS MEDICATED WITH OXYCODONE 10MG PO C/O 11/16 R LEG/HIP PAIN. MOVING ALL EXTREMITIES WELL, REPOSITIONING IN BED. PULSES PALPABLE, NO ABNORMALITIES NOTED OR PALPATED WHEN ASSESSING HIP AND LEG. GOT VERY UPSET WHEN TOLD THAT MD HAD ORDERED A R SHOULDER AND HIP XR. "ITS NOT MY HEAD OR MY SHOULDER, IS MY GROIN AREA". MY LEG IS COLD. COOL TO TOUCH FEET. DECLINES TO COVER EXTREMITIES. LIGHT SHEET APPLIED TO LE. GOOD PULSES PALPABLE. VERBALLY REASSURED, DENIES RELIEF FROM ASPERCREME APPLIED EARLIER.
--- NOTE | 2021-05-05 00:42 | NUR ---
very drowsy, answeres appropriately, stated mild pain relief, states "my R groin hurts, not my hip", O2 4LNC, bed alrm on. feet unvocered by pt. call light and flauids at hands reach
--- NOTE | 2021-05-05 01:24 | NUR ---
USING CALL LIGHT, ON O2. RESPOSITIONS SELF IN BED, USIING R ARM/HAND AND MOVING LEG TO REPOSITION IN BED VERY WELL. C/O R HIP NOW, DENIES C/O R LEG PAIN. DECLINES ASPERCREME, HAD DECLINED PILLOWS AT SIDES EARLIER. REPOSITIN SELF TOWARDS R SIDE, PILLOWS ON BACK TO COMFORT, CALL LIGHT AT HANDS REACH, BED ALARM IN PLACE
--- NOTE | 2021-05-05 02:47 | NUR ---
continues on Respiratory Isolation Precautions. O2 4LNC, eyes closed, no distress, hob slightly elevated, pt able to control and reposition self in bed. call light at handsreach
--- NOTE | 2021-05-05 03:33 | NUR ---
pt repositioned in bed, O2 4LNC in place, incontinent of urine, skin care, barrier cream, clean attends in place, turned and repositioned several times to his comofrt. helped with repositioning. Medicated with Oxycodone 10mg po per 09/15 R leg cramping. " no my pain is not on my shoulder, my hip or my groing is a cramp, it has always been like a big leg cramp" pt stated. very anxious, irritable, easily redirected. Vistaril 25mg po given per anxiety. call light at hands reach
--- NOTE | 2021-05-05 04:51 | NUR ---
Laying on his left side, O2 4LNC in place, eyes closed, no resp distress, call light at hands reach, bed alarm on.
--- NOTE | 2021-05-05 05:47 | NUR ---
Pt currently resting, calmer, eyes closed, O2 4LNC, lungs dim at bases, hyperventilating at times with increased restlessness, irritability and anxiety. sats WNL mid 90's%. C/o R shoulder, R back, R neck, h/a, R groing, R leg pain. then c/o leg cramping only not pain. Aspercream applied, denies effectiveness, repositioned multiple times to [facility], partially effectiveness Was medicated with [place] x1, Oxycodone 10mg x2, with reporting mild pain relief.Trazadone per insomnia, not effective. Vistaril 25mg x2 per anxiety. Dr notified and med changes were made. will get an Xr of R shoulder and hip this am, no abnormalities palpated during assessments, pulses palpable. LE cold to touch, but pt declines to have LE covered. warm blanket given at this time. pt calmer, cooperative and LE warmer, good CMS, moving all extremities well, repositioning in bed and turns self. Had 2 small bms this shift, was incontinent of urine, skin care, red and edematous scrotum present, Desenex powder applied. trace edema to LE. Bed alarm for safety. tolerating liquids well, no emesis. verbal reassurance needed very frequently . Has slept a total of less than hour this shift as of this time.
--- NOTE | 2021-05-05 07:25 | NUR ---
this rn received report from rogelio lin awake and using call light to talk to the md. pt told the md will be around later this am.
--- NOTE | 2021-05-05 07:47 | NUR ---
imagining in room. pt not wanting to cooperate stating that he has "no muscles"
--- NOTE | 2021-05-05 08:50 | NUR ---
THIS RN IN PTS ROOM TO GIVE PTS MORNING MEDS. PT APPEARS DORWSY AND STARTS TO DRIFT OFF TO SLEEP WHEN THIS RN IN ROOM. PT REPORTING WEAKNESS IN ARMS AND SOME PAIN IN RIGHT HIP. THIS RN PROVIDED PT WITH TYLENOL AND WITHHOLD OTHER MEDS DUE TO CONGINTIVE STATUS. PT ABLE TO ROLL AND MOVE WELL THIS AM. PT NOT INTERESTED IN FOOD. BED ALARM ON. CALL LIGHT WTIHIN REACH
--- NOTE | 2021-05-05 09:15 | NUR ---
MCKINLEY HERNANDEZ IN TO CHANGE PT.
--- NOTE | 2021-05-05 12:40 | NUR ---
THIS RN IN PTS ROOM TO GIVE MED. PT STATES THAT HE IS UNCOMFROTABLE AND WANTS TO SIT UP. THIS RN ASSITED TO SIT UP IN BED- PT STATES THAT HE WOULD LIKE TO SIT UP TO CHAIR- THIS RN DISUCUSSED WITH PT THAT WE COULD TRY WTIH PT BUT LETS TRY TO REPOSITION FIRST. PT DID NOT LIKE SITTING UP IN BED AND REQUESTED TO BE LOWERED. PT STATES THAT HE IS COMFORTABLE NOW. CALL LIGHT WITHIN REACH
--- NOTE | 2021-05-05 15:00 | NUR ---
THIS RN IN PTS ROOM DUE TO PT STATING THAT HE WAS UNCOMFORTABLE- PT STATES THAT HE WANTS TO GET UP TO CHAIR. THIS RN ASKED IF PT HAS ATTEMPTED TO ROLL AND REPOSITION- PT STATES HE TRIED BUT COULDN'T THIS RN IN PTS ROOM TO PROVIDE PT WITH SCHEDULED TYLENOL, PRN VITARIL AND OXY. THIS RN ENCOURGED PT TO CHANGE POSITIONS HIMSELF- PT ABLE TO ROLL- THIS RN PROVIDED PT WITH A HEAT PACK ON HIS BACK PT ABLE TO GET COMFORTABLE VENUS HERNANDEZ IN ROOM TO ASSIST TO START NEW IV. PT TOLERATED WELL
--- NOTE | 2021-05-05 19:32 | NUR ---
Cont in Resp Isolation Precautions. O2 4LNC, drowsy, opens eyes, clear speech. denies c/o pain. family in room. Bed alarm on, call light at bedside
--- NOTE | 2021-05-05 21:08 | NUR ---
on Resp Isolation Precaution, O2 $LNC, lungs crackles and dim at bases, increased SOB noted with turning/repositioning, increased facial redness present, large abd firm, yaya, incontinent of urine, Desenex to reddened ronnie area. used urinal too and voided small amount yellow urine. used call light. trace edema to LE. denies cramping or pain at this time, received scheduled Tylenol and new order for requip per restless legs, light sheet on. LE warm. pedal pulses present. elevated. JAVI SL patent. Toleraing liquids well
--- NOTE | 2021-05-05 23:29 | NUR ---
TOOK O2 OFF, REPLACED, MORE AWAKE, CONTINUES TO C/O R SIDED WEAKNESS.
--- NOTE | 2021-05-06 00:36 | NUR ---
on o2 4LNC chronic. Resp Isolation Precautions. increased moaning and restlessness. helped with turning and repositioning. voided small amounts yellow urine in urinal. increaed weakness overall noted arms and legs when repositioning. reddish face. no SOB or hyperventilating noted when turned. red areas noed under L breast, LAC and back of lower Left leg, left leg, darked reddish about 4x3in area. non warmer than rest of body, non tender. new from yesterday unknown if it happend when pt was moving legs/restlessness. denies c/o pain on that leg. R leg tender. no abnormalities except weaknedd RLE. Medicated with Vistaril 50mg restlessness. tolerated small sips of fluids. call light at hands reach.
--- NOTE | 2021-05-06 01:48 | NUR ---
CALL LIGHT ANSWERED. ASSISTED IN USING URINAL. PATIENT URINATED 125 ML. PATIENT REPOSITIONED ON TTO LAYING HIS LEFT SIDE. NO OTHER NEEDS AT THIS TIME. CALL LIGHT IN HIS HAND.
--- NOTE | 2021-05-06 02:38 | NUR ---
Used call light, still anxious and restless but better than earlier. used urinal, helped with turning and repositioning. did better, slight sob with exertion but better. call light and fluids at bedside. Aware that a bed has been made available at [facility], waiting for Dr Murphy and Transport arrangements
[2021-05-06] MEDS ORDERED: SUDOGEST30 MG PO (02:39)
[2021-05-06] MEDS ORDERED: IPRAT-ALBUT 0.5-3 ML INH (02:39)
[2021-05-06] MEDS ORDERED: AMLODIPINE BESYL5 MG PO (02:40)
[2021-05-06] MEDS ORDERED: ENOXAPARIN40 MG/0.4 SUB-Q (02:40)
[2021-05-06] MEDS ORDERED: ARTHRICREAM85 GM TOP (02:41)
[2021-05-06] MEDS ORDERED: HYDROXYZINE PAM25 MG PO (02:41)
[2021-05-06] MEDS ORDERED: TRAZODONE HCL50 MG PO (02:41)
[2021-05-06] MEDS ORDERED: BENZONATATE100 MG PO (02:42)
[2021-05-06] MEDS ORDERED: HEALTHYLAX17 GM PO (02:42)
[2021-05-06] MEDS ORDERED: ROPINIROLE HC0.25 MG PO (02:42)
[2021-05-06] MEDS ORDERED: METFORMIN HCL500 MG PO (02:43)
[2021-05-06] MEDS ORDERED: SEMGLEE100 UNIT/1 SUB-Q (02:43)
[2021-05-06] MEDS ORDERED: LIDOCAINE1 EACH TD (02:44)
--- NOTE | 2021-05-06 02:53 | NUR ---
Dr Partida here, pt signed ok to transport
--- NOTE | 2021-05-06 03:35 | NUR ---
[facility] TRANSPORT HERE AT 1554
--- NOTE | 2021-05-06 03:44 | NUR ---
0332 - Report given to Rosalee Encarnacion RN. [phone] dc to [facility] via [facility] with 2 crew. was medicated prior to DC dc with all belongings
--- NOTE | 2021-05-06 04:30 | NUR ---
Daughter Rachel Reeves notified at [phone] was notified of fathers transport to [facility] hosp
== END 2021-05-06 03:44 | disposition short-term general hospital (02) | DRG 177 ==
LOC: ED 04:51 → MS 04:53
PROVIDERS: ADMIT Internal Medicine; ATTEND Internal Medicine
PROC: 3E0333Z Introduction of Anti-inflammatory into Peripheral Vein, Percutaneous Approach (ICD-10-PCS; principal; 2021-04-29)
PROC: XW033E5 Introduction of Remdesivir Anti-infective into Peripheral Vein, Percutaneous Approach, New Technology Group 5 (ICD-10-PCS; 2021-04-29)
PROC: 8E0ZXY6 Isolation (ICD-10-PCS; 2021-04-29)
PROC: XW033H6 Introduction of Other New Technology Monoclonal Antibody into Peripheral Vein, Percutaneous Approach, New Technology Group 6 (ICD-10-PCS; 2021-04-29)
DX: U07.1 COVID-19 (principal); J12.82 Pneumonia due to coronavirus disease 2019; J96.21 Acute and chronic respiratory failure with hypoxia; I50.32 Chronic diastolic (congestive) heart failure; Z66 Do not resuscitate; Z23 Encounter for immunization; J44.9 Chronic obstructive pulmonary disease, unspecified; I25.10 Atherosclerotic heart disease of native coronary artery without angina pectoris; N40.0 Benign prostatic hyperplasia without lower urinary tract symptoms; E78.5 Hyperlipidemia, unspecified; E11.9 Type 2 diabetes mellitus without complications; Z99.81 Dependence on supplemental oxygen; Z91.013 Allergy to seafood; Z91.09 Other allergy status, other than to drugs and biological substances; Z90.49 Acquired absence of other specified parts of digestive tract; Z98.890 Other specified postprocedural states; Z79.84 Long term (current) use of oral hypoglycemic drugs; Z79.899 Other long term (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 therapy
CPT/HCPCS: 36415; 70551; 71045; 73030; 73502; 73560; 76536; 80048; 80053; 81001; 82140; 82533; 82553; 82803; 83036; 83880; 84100; 84439; 84443; 84484; 85025; 86140; 89051; 93005; 93010; 94640; 94667; 94668; 94760; 96372; 96374; 96375; 96376; 97110; 97161; 99285-25; A9270; C9803; G0378; J0248; J1100; J1170; J1650; J1815; J1940; J2405; J7050; J8540; M0247; Q0177; U0003

== ENCOUNTER 2021-09-07 20:57 | Inpatient (IN) | payer MEDICARE, OTHER ==
[~2021-09-07] VITALS: Ht 167.6 cm; Wt 93.3 kg
[~2021-09-07 20:57] MED LIST: AMLODIPINE BESYL5 MG PO; ARTHRICREAM85 GM TOP; BENZONATATE100 MG PO; ENOXAPARIN40 MG/0.4 SUB-Q; HEALTHYLAX17 GM PO; HYDROCODON-ACE1 EA10 PO; HYDROXYZINE PAM25 MG PO; IPRAT-ALBUT 0.5-3 ML INH; LASIX40 MG PO; LIDOCAINE1 EACH TD; LIPITOR10 MG PO; METFORMIN HCL500 MG PO; NITROGLYCERIN0.4 MG SL; ONDANSETRON ODT8 MG PO; ROPINIROLE HC0.25 MG PO; SEMGLEE100 UNIT/1 SUB-Q; SILDENAFIL20 MG PO; SUDOGEST30 MG PO; TAMSULOSIN HCL0.4 MG PO; TRAZODONE HCL50 MG PO; VITAMIN D325 MC2 PO
--- OUTSIDE RECORDS SUMMARY | 2021-09-07 21:00 | XMS ---
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 Security Publication Specialist Events No recent Security Events currently on file CRITERIA MET - [facility] SHANTELL GREENBERG Psychiatry \T\ Neurology: Psychiatry Current PHONE: [phone] [facility] [phone] [facility]: Unknown Jesus has no Care Guidelines for this patient. Comfort VISIT COUNT (12 MO.) 2 KYLIE Nolan TOTAL 2 NOTE: Visits indicate total known visits. ED/UCC VISIT TRACKING (12 MO.) 09/07/2021 20:57 [facility] [place] TYPE: Emergency COMPLAINT: - HEAD INJURY 04/29/2021 04:52 [facility] [place] TYPE: Emergency COMPLAINT: - FLU SYMPTOMS INPATIENT VISIT TRACKING (12 MO.) [facility] DIAGNOSES: - Heart failure, unspecified - Adjustment disorder, unspecified - Cellulitis of right toe - COVID-19 - Weakness; COVID - Weakness - Unspecified convulsions - Guillain-[place] syndrome 04/29/2021 11:29 [facility] [place] TYPE: Medical Surgical COMPLAINT: - COVID, CHF DIAGNOSES: - Benign prostatic hyperplasia without lower urinary tract symptoms - Other ad terminal makeup operator (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 therapy - Acute and chronic respiratory failure with hypoxia - Other specified postprocedural states - Type 2 diabetes mellitus without complications - Type 2 diabetes mellitus without complications - Pneumonia due to coronavirus disease 2018 - Atherosclerotic heart disease of [place] coronary artery without angina pectoris - Allergy to seafood - Do not resuscitate - COVID-19 - Other allergy status, other than to drugs and biological substances - Acquired absence of other specified parts of digestive tract - Chronic diastolic (congestive) heart failure - Hyperlipidemia, unspecified - Hyperlipidemia, unspecified - Chronic obstructive pulmonary disease, unspecified - Other allergy status, other than to drugs and biological substances - Acute and chronic respiratory failure with hypoxia - Chronic obstructive pulmonary disease, unspecified - Encounter for immunization - Chronic diastolic (congestive) heart failure - Dependence on supplemental oxygen - Benign prostatic hyperplasia without lower urinary tract symptoms - Do not resuscitate - Allergy to seafood - 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
[2021-09-07] MEDS ORDERED: TRULICITY0.75 MG/0. SUB-Q (21:56)
[2021-09-07] MEDS ORDERED: GABAPENTIN300 MG PO (21:56)
[2021-09-07] MEDS ORDERED: FUROSEMIDE40 MG PO (21:56)
[2021-09-07] MEDS ORDERED: VENLAFAXINE H37.5 MG PO (21:56)
[2021-09-07] MEDS ORDERED: ATORVASTATIN CA10 MG PO (22:33)
[2021-09-07] MEDS ORDERED: DILTIAZEM 24HR120 MG PO (22:43)
--- NOTE | 2021-09-08 00:43 | NUR ---
PATIENT ARRIVED TO THE FLOOR VIA STRETCHER. PATIENT MAURI TO AMBULATE A 1PA TO HOSPITAL BED FROM STRETCHER. PATIENT SOB W/AMBULATION. VITALS TAKEN AND RECORED. PATIENT ABLE TO VOID IN URINAL. PATIENT IS ON 5L VIA NC. FINE CRACKLES IN BILAT LUNG BASES NOTED. PATIENT PROVIDED WITH ICE WATER AND SANDWICH BOX. PATIENT GIVEN PRN TYLENOL FOR 5/10 PAIN FOR A HEADACHE. NO FURTHER NEEDS NOTED. PATIENT PLACED ON TELE #5, SR.
--- NOTE | 2021-09-08 01:51 | NUR ---
PATIENT IS RESTING IN BED WITH EYES CLOSED, RR 20. CALL LIGHT IN REACH.
--- NOTE | 2021-09-08 02:31 | NUR ---
PATIENT IS RESTING IN BED WATCHING TV. PATIENT RATES PAIN NOW AT A 4/10, AND DENIES THE NEED FOR FURTHER INTERVENTION AT THIS TIME. CALL LIGHT IN REACH.
--- NOTE | 2021-09-08 03:34 | NUR ---
PATIENT IS RESTING IN BED WATCHING TV. PATIENTS URINAL EMPTIED. PATIENT DENIES ANY FURTHER NEEDS. CALL LIGHT IN REACH.
--- NOTE | 2021-09-08 06:24 | NUR ---
VITALS TAKEN AND RECORDED. INTAKE AND OUTPUT RECORDED. BLOOD DRAWN AND SENT TO LAB. PATIENT TITRATED TO 4L VIA NC. PATIENT DENIES ANY SOB. ATTEND DRY AT THIS TIME. PATIENTS IV FLUSHED AND SL PER ORDER. NO FURTHER NEEDS NOTED. CALL LIGHT IN REACH.
--- NOTE | 2021-09-08 07:30 | NUR ---
REPORT RECIEVED FROM NIGHT RN - PT RESTING IN BED WITH HOB ELEVATED, AWAKE, DENIES NEEDS AT THIS TIME, NC IN PLACE. CALL LIGHT IN REACH.
[2021-09-08] MEDS ORDERED: TRULICITY0.75 MG/0. SUB-Q (08:37)
--- NOTE | 2021-09-08 10:00 | NUR ---
RN IN ROOM TO ASSESS PT - PT SOB IN BED STATING "HE DOESNT FEEL WELL". HE BELIEVES THIS IS DUE TO HIS NON DIABETIC BREAKFAST HE ATE. PT REMAINS ON 4L VIA NC WITH SPO2 91% AMBULATES TO THE BATHROOM TO HAVE LARGE BM - SOME INCONTINCE IN ATTENDS R/T URGENCY. ATTENDS CHANGED. PT BACK TO BED, DIZZINESS WITH AMBULATION - RECOVERS WITH REST AND DEEP BREATHS THROUGH NOSE. CALL LIGHT IN REACH.
[2021-09-08] MEDS ORDERED: DILTIAZEM 24HR120 MG PO (11:07)
[2021-09-08] MEDS ORDERED: METFORMIN HCL500 MG PO (11:09)
--- NOTE | 2021-09-08 11:13 | NUR ---
MED REC COMPLETE
--- NOTE | 2021-09-08 12:35 | NUR ---
RN IN ROOM TO ADMINISTER SCHEDULED MEDICATIONS. PT USES URINAL WITH ASSISTANCE. PT SOB WITH EATING LUNCH - ABD DISTENTION FROM FLUID NOTICABLY MORE FIRM. PT REPOSISTIONS IN BED TO GET MORE COMFORTABLE. 4L NC IN PLACE. SON IN ROOM TO VISIT - REQUESTS HELP WITH DM DIET EDUCATION AND CARE, CONSULT INITIATED.
--- NOTE | 2021-09-08 13:47 | NUR ---
PT HAVING SMALL FREQUENT VOIDS - URINE OUTPUT INCREASING R/T IV LASIX. ATTENDS IN PLACE, USING URINAL IN BED. USING CALL LIGHT APPROPRIALTY.
--- NOTE | 2021-09-08 14:40 | NUR ---
RN IN ROOM TO ASSESS PT - SPO2 STABLE AT LOW 90% ON 4L NC, PT SOB RESTING IN BED. FREQUENT NEED TO USE URINAL HAS PT FEELING "WORN OUT". URINE MORE DILUTE AND PICKING UP IN VOLUME. CRACKLES THROUGHOUT ALL LUNG HUNTER. EDEMA IN ABD, SCROTUM AND LEGS UNCHANGED. CALL LIGHT IN REACH.
--- NOTE | 2021-09-08 15:54 | NUR ---
RN IN ROOM TO ADMINISTER SCHEDULED MEDS - PT RESTING IN BED WATCHING TV UPON ENTRY. RR 24 WITH CONVERSATION, 4L NC IN PLACE, SP02 91%, P78 PT CONTINUES FREQUENT URINATION IN URINAL, ATTENDS IN PLACE. CALL LIGHT IN REACH.
--- NOTE | 2021-09-08 17:25 | NUR ---
RN IN ROOM TO ADMINISTER SCHEDULED MEDICATIONS AND CHECK CBG. NO INSULIN NEEDED FOR DINNER MEAL, CBG 116 PT WORK OF BREATHING APPEARS IMPROVED ON 5L O2 - PT CONTINUING TO HAVE FREQUENT URINE VOIDINGS. DENIES FURTHER NEEDS AT THIS TIME. CALL LIGHT IN REACH.
--- NOTE | 2021-09-08 18:49 | NUR ---
RN IN ROOM TO OBTAIN VS AND I/O. PT REQUESTS HELP TO URINATE IN URINAL IN BED. PT REPORTS "NO APPETITE" AND HAS NOT EATEN DINNER. SP02 92% ON 5L, PT WORK OF BREATHING APPEARS DECREASED ON 5L VS 4. DENIES FURTHER NEEDS, CALL LIGHT IN REACH.
--- NOTE | 2021-09-08 19:23 | NUR ---
RECEIVED REPORT FROM DAY SHIFT RN. PATIENT IS RESTING IN BED. NO NEEDS NOTED. CALL LIGHT IN REACH.
--- NOTE | 2021-09-08 20:35 | NUR ---
ASSISTED PRIMARY RN MELANY. V/S AND I&O'S TAKEN AND RECORDED. BLOOD SUGAR CHECKED DONE. PATIENT ASSISTED IN USING THE URINAL. PATIENT STATED HIS PULL UP IS DRY NO NEED TO BE CHANGED.
--- NOTE | 2021-09-08 20:42 | NUR ---
PATIENT ASSESMENT COMPLETED. PATIENT ASSISTED BY SENIOR LABORATORY TECHNICIAN TO USE URINAL. PATIENT ABLE TO VOID. VITALS TAKEN AND RECORDED. PM MEDS GIVEN PER ORDER. PATIENT RATES HIS HEADACHE AT A 4/10, PRN TYLENOL GIVEN PER ORDER. PATIENTS IV FLUSHED AND SL PER ORDER. PATIENT EDUCATED ON FLOOR RESTRICTION. PATIENT VERBALIZES UNDERSTANDING. PATIENT PROVIDED CHF EDUCATION. PATIENT WOULD LIKE EDUCATION GIVEN TO SON AND GRANDSON ALSO. WILL LET DAY SHIFT KNOW TO EDUCATE FAMILY TOMORRW. PATIENT DENIES ANY FURTHER NEEDS. CALL LIGHT IN REACH.
--- NOTE | 2021-09-08 21:35 | NUR ---
PATIENT IS RESTING IN BED WITH EYES CLOSED, RR 18. CALL LIGHT IN REACH.
--- NOTE | 2021-09-08 23:22 | NUR ---
PATIENT IS RESTING IN BED WITH EYES CLOSED, RR 18. CALL LIGHT IN REACH. TELE # [phone], SR, HR [id number].
--- NOTE | 2021-09-08 23:45 | NUR ---
CALL LIGHT ANSWERED. ASSISTED IN USING URINAL. CHANGED WET ATTENDS AND WHITE CHUX. CHANGED GOWN. MARY MOSLEY CAME AND PATIENT BOOSTED UP IN BED. CALL LIGHT IN PATIENT'S HAND.
--- NOTE | 2021-09-09 00:16 | NUR ---
PATIENTS ATTEND CHANGED BY RUDY OLVERA. PATIENT REPOSITIONED IN BED. PATIENT DENIES ANY FURTHER NEEDS CALL LIGHT IN REACH. PATIENT DENIES ANY SOB AND REMAINS ON 5L VIA NC.
--- NOTE | 2021-09-09 01:13 | NUR ---
RESTING, HOB ELEVATED, O2 5LNC. CALL LIGTH AND FLUIDS AT BEDSIDE, NO DISTRESS NOTED, TAKING OVER CARE AT THIS TIME
--- NOTE | 2021-09-09 03:12 | NUR ---
resting, no distress. O2 5LNC, hob elevated. call light at hands reach. on fluid restriction.
--- NOTE | 2021-09-09 04:06 | NUR ---
PT USED CALL LIGHT, ON 5LNC, INSP/EXP WHEEZING AND CRACKLES AT BASES, SOB WITH EXERTION, EDEMATOUS SCROTUM, PINK/RED AREAS UNDER PANNUS TOO. SL PATENT, ADJUSTING TO FLUID RESTRICTION.
--- NOTE | 2021-09-09 04:57 | NUR ---
Pt has slept much of this shift. on 5LNC, chronic 3L at home. sats WNL, lungs w insp/exp wheezing, sob with exertion, tolerating fluid restriction well. edematous scrotum, uses urinal and is incontinent, attends in place, redness periarea and under pannus noted. discoloration and tenderness LE, c/o chronic neuropathy LE, cool to touch. Up to edge of bed for DW standing scale 97.7KG. pleasant and cooperative. cbg 144 at begining of shift.
--- NOTE | 2021-09-09 07:25 | NUR ---
PATIENT RESTING QUIETLY ON 5L/NC, RESPIRATIONS ARE REGULAR AND EVEN, EYES CLOSED, CALL LIGHT IN REACH, IN SEMI-FOWLERS POSITION. PATIENT HAS NO NURSE CARE NEEDS AT THIS TIME. THIS RN RECEIVED SHIFT REPORT FROM MARY CHEEK.
--- NOTE | 2021-09-09 08:56 | NUR ---
THIS RN IN TO SEE PATIENT AM ASSESSMENT DONE. PATIENT'S O2 SATS WERE AT 88% ON 5L/NC AND THIS RN TITRATED O2 UP TO 6L/NC. PATIENT HAS INSPIRATORY AND EXPIRATORY WHEEZES AND CRACKLES IN THE BILATERAL LUNG BASES. THIS RN CALLED RT TO COME LISTEN TO PATIENT. THIS RN AND KANCHAN,RT. BOOSTED PATIENT UP IN BED AND O2 SATS INPROVED TO MID 90'S. O2 TITRATED DOWN TO 4L/NC AND SATS AT 94%. AM ASSESSMENT COMPLETE AND AM MEDS GIVEN. CALL LIGHT IN REACH.
--- NOTE | 2021-09-09 12:11 | NUR ---
PATIENT EATING LUNCH AND AND REMAINS ON 4L/NC. 40MG SIVP LASIX GIVEN WITH AFTERNNON MED. PATIENT HAS NO OTHER NEEDS FROM ME AT THIS TIME. CALL LIGHT IS IN REACH.
--- NOTE | 2021-09-09 12:24 | NUR ---
THIS RN IN AND ASSISTED PATIENT IN USING THE URINAL. PATIENT HAD NO OTHER CARE NEEDS AT THIS TIME. CALL LIGHT IS IN REACH.
--- NOTE | 2021-09-09 12:36 | NUR ---
THIS RN IN TO HELP PATIENT WITH THE URINAL AGAIN. TELE ALSO DC'D. PATIENT ATE 100% OF HIS LUNCH AND TRAY PICKED UP BY THIS RN. PATIENT HAD NO OTHER CARE NEEDS AT THIS TIME. CALL LIGHT IS IN REACH.
--- NOTE | 2021-09-09 15:22 | NUR ---
THIS CNA2 ASSISTED PT W/FULL BEDBATH. SHAMPOO, HAIR COMBED, ORAL CARE, VASELINE APPLIED TO KNEE. PT ROLLED FROM SIDE TO SIDE IDEPENDENTLY TO CHANGE BRIEF AND PERFORM PARTH CARE. ALSO ASSISTED PT IN HOLDING URIAN TO VOID. VOID DOCUMENTED. PT RESITUATED IN BED INDEPENDENTLY. PT IS RESTING IN BED COMFORTABLE. NO OTHER REQUESTS CALL LIGHT IS IN REACH.
--- NOTE | 2021-09-09 16:00 | NUR ---
THIS RN IN TO SEE PATIENT AND 2ND DOSE OF 40MG IV LASIX GIVEN WITH AFTERNNON MED. PATIENT HAD NO OTHER CARE NEEDS AT THIS TIME. CALL LIGHT IN REACH.
--- NOTE | 2021-09-09 16:16 | NUR ---
THIS RN IN TO HELP PATIENT WITH URINAL. PATIENT STARTING TO HAVE OUTPUT FROM SECOND DOSE OF LASIX. PATIENT HAD NO OTHER NEEDS AT THIS TIME. CALL LIGHT IN REACH AND AFTERNOON ASESSMENT COMPLETE.
--- NOTE | 2021-09-09 18:00 | NUR ---
THIS RN IN TO HELP PATIENT WITH THE URINAL. PATIENT CONTINUES TO HAVE GOOD OUTPUT FROM THE IV LASIX. PATIENT DENIED ANY OTHER CARE NEEDS AT THIS TIME. CALL LIGHT IS IN REACH.
--- NOTE | 2021-09-09 19:15 | NUR ---
PATIENT CALLED FOR ASSISTANCE IN USING URINAL. PATIENT VOIDED 200ML. NO OTHER NEEDS AT THIS TIME.
--- NOTE | 2021-09-09 20:40 | NUR ---
ANSWERED CALL LIGHT. ASSISTED PATIENT IS USING URINAL. NO OTHER NEEDS AT THIS TIME.
--- NOTE | 2021-09-09 21:45 | NUR ---
PT ASSESSMENT COMPLETE. PT REPORTS 6/10 HEADACHE PAIN AND NEUROPAHTY TO BILATERAL FEET INCREASINGLY PAINFUL. PRN AND SCHEDULED MEDICATION ADMINISTERED. SEE EMAR. PT REQUESTS TO HAVE ATTENDS CHANGED AFTER INCONTINENCE EPISODE. HEAD OF BED LOWERED AND PT ABLE TO TURN HIMSELF SIDE TO SIDE. PT BECOMES SOB WITH THIS ACTIVTY. HOB INCREASED. PT RECOVERS QUICKLY. LUNG SOUNDS COARSE TO BILATERAL UPPER LOBES. EXPIRATORY WHEEZE TO BILATERAL LOWER LOBES. O2 IN PLACE AT 5 LPM. IV FLUSHED. WNL. SL. PT DENIES FURTHER NEEDS AT THIS TIME. CALL LIGHT IN REACH.
--- NOTE | 2021-09-09 22:30 | NUR ---
PT REQUESTING SNACK. PROVIDED. PT DENIES FURTHER NEEDS AT THIS TIME. CALL LIGHT IN REACH.
--- NOTE | 2021-09-09 22:44 | NUR ---
PATIENT CALLED FOR ASSISTANCE ON USING URINAL. NO OTHER NEEDS AT THIS TIME.
--- NOTE | 2021-09-10 01:05 | NUR ---
PATIENT CALLED. ASSISTED IN USING URINAL. PATIENT STATED I NEVER THOUGHT THAT THIS WILL HAPPEN THAT I WOULD NEED SOMEONE TO HELP ME USE THE URINAL. THIS MIDDLE SCHOOL SPANISH TEACHER ASKED WHY CANT HE DO IT HIMSELF. PATIENT STATED I TRIED BUT IT JUST WET EVERYWHERE. PATIENT STATED HIS GRANDSON HELP HIM AT HOME.
--- NOTE | 2021-09-10 01:07 | NUR ---
PT UTLIZES CALL LIGHT, REQUESTS URINAL. HYDRAULIC BARKER OPERATOR ASSISTS PT WITH USE. PT DENIES FURTHER NEEDS AT THIS TIME. CALL LIGHT IN REACH.
--- NOTE | 2021-09-10 03:24 | NUR ---
CALL LIGHT ON FOR ASSISTANCE ON THE USE OF URINAL. NO OTHER REQUEST AT THIS TIME.
--- NOTE | 2021-09-10 03:54 | NUR ---
PT ASSESSMENT COMPLETE. PT DENIES PAIN OR NAUSEA. REPORTS THAT SOB IS WELL CONTROLLED CURRENTLY. O2 @ 5LPM VIA NC. LUNG SOUNDS COARSE THROUGHOUT. BLE TENDER TO TOUCH, PT REPORTS DUE TO NEUROPATHY. PT USING THE URINAL WITH DREDGE CAPTAIN ASSIST PRIOR TO ASSESSMENT. IV SL. PT DENIES FURTHER NEEDS AT THIS TIME. CALL LIGHT IN REACH.
--- NOTE | 2021-09-10 04:51 | NUR ---
PATIENT CALLED TO ASK FOR SNACK. CRACKERS AND SUGAR FREE PUDDING PROVIDED.
--- NOTE | 2021-09-10 05:47 | NUR ---
VS OBTAINED, WNL. PT UP TO STANDING SCALE. PT REPORTS FEELING INCREASINGLY SOB, SLIGHTLY DIZZY. SAO2 88% ON 5 LPM, INCREASED TO 6 LPM. SA02 90%. PT REPORTS DECREASED DIZZINESS AFTER BACK TO BED. PT USES URINAL APPROPRIATELY WITH ASSISTANCE. ATTENDS CHANGED. PT DENIES FURTHER NEEDS. CALL LIGHT IN REACH.
--- NOTE | 2021-09-10 07:44 | NUR ---
Report received from Amparo HERNANDEZ. Pt awake in bed, even and unlabored RR, states no needs at this time. Call light in reach, will continue plan of care.
--- NOTE | 2021-09-10 08:27 | NUR ---
In room to administer medications, [employer] not available on computer, pt states no needs at this time, will resolve error and return shortly. Pt sitting up in bed eating breakfast, stating "too weak" to move to chair at this time. Pt appreciative of staff. Call light in reach.
--- NOTE | 2021-09-10 09:40 | NUR ---
Scheduled medications administered and assessment complete. Pt ambulates to BR with 1PA and FWW for void/BM. Linens changed, I/Os complete. Pt on 4L O2 with ambulation and tolerates well. PT in room to see patient.
--- NOTE | 2021-09-10 11:31 | NUR ---
THERE ARE PATIENT SAFETY CONCERNS FOR FALLING WITH PATIENT'S DC. PATIENT IS UNABLE TO GET OFF THE TOILET AT HOME WITHOUT ASSISTANCE AND HAS TO HAVE ASSITANCE TO SHOWER WELL. PATIENT ALSO NEEDING TO 2 PEOPLE TO GET UP AND DOWN THE HILL INTO HIS APT. PATIENT HAD A FALL JUST BEFORE ADMISSION. LOOKS LIKE SAMMY NGUYEN IS GOING TO TAKE THE PATIENT TOMORROW. PT AND OT WRITING THERE NOTES CURRENTLY.
--- NOTE | 2021-09-10 13:19 | NUR ---
PATIENT GIVEN TYLENOL FOR 6/10 HEADACHE.
--- NOTE | 2021-09-10 13:38 | NUR ---
PT SITTING ON SIDE OF BED WITH Fabiano REED IN WORKING WITH PT. CHECKED WITH PT TO SEE IF HE WOULD LIKE VISIT FROM THE OFFICE SERVICES MANAGER TODAY. PT INFORMED ME HE IS NOT [facility], AND WOULD LIKE FOR ME TO CHANGE TO YAZIDISM WITH ADMITTING. CONNECTED WITH DELAYNE FROM ADMITTING-MADE CHANGE. PT REQUESTED PRAYER, GAVE G.POST AND WILL FOLLOW
--- NOTE | 2021-09-10 15:08 | NUR ---
Call light answered, pt assisted to use urinal to void. No further needs at this time.
--- NOTE | 2021-09-10 15:20 | NUR ---
Scheduled medications administered, pt resting in bed, states no needs. Call light in reach.
--- NOTE | 2021-09-10 17:10 | NUR ---
Scheduled medications administered and assessment complete. Pt resting in bed with eyes closed- awakens to RN entry. Assisted to use urinal to void. Pt set up for dinner, no further needs.
--- NOTE | 2021-09-10 19:42 | NUR ---
REPORT RECEIVED AT SHIFT CHANGE. PT IS SLEEPING AND DID NOT AWAKEN AT BEDSIDE REPORT. PT IS CURRENTLY ON 4 L PER NC. CALLL LIGHT IN REACH.
--- NOTE | 2021-09-10 20:15 | NUR ---
ASSISTED PT WITH USE OF URINAL. HE WENT ON TO SAY HE HATES LIVING IN [place]. WANTS TO MOVE BACK TO [place]. IS ANGRY THAT HIS SON MADE HIM MOVE HERE.
--- NOTE | 2021-09-11 01:00 | NUR ---
patient called to use the urinal. assisted. sugar free jello provided per patient's request. primary rn is aware.
--- NOTE | 2021-09-11 04:13 | NUR ---
PT IS SLEEPING QUIELY . CALL LIGHT IN REACH. DID NOT DISTURB HIM.
--- NOTE | 2021-09-11 07:24 | NUR ---
RECEIVED REPORT FROM FINANCE MANAGER NURSE. PT RESTING COMFORTABLY. CALL LIGHT WITHIN REACH. PLAN FOR DISCHARGE TODAY.
--- NOTE | 2021-09-11 08:00 | NUR ---
In and spoke with pt as he states he is leaving at 0900. Reminded as we discussed, he can onluy leave to go to [facility] if his CHF has improved. Dr Orlando and myself both discussed this yesterday with him. is concerned if he leaves, to soon he will need to return. will see him after 0930 meeting. Pt states he remembers, but is anxious to return to [facility] as he feels he had more help than he recieves from his family. Encourged him to wait until he speaks with Dr. Orlando, he may still be able to go today.
--- NOTE | 2021-09-11 09:22 | NUR ---
TO PT ROOM FOR MORNING ASSESSMENT AND MEDICATION ADMINISTRATION. PT A/O, RESTING IN BED. RATES PAIN 0/10. NO COMPLAINTS ATT. CALL LIGHT WITHIN REACH.
--- NOTE | 2021-09-11 09:25 | NUR ---
Received a text from Shabnam at [facility], asking if pt will admit today. Let her know we are getting ready to start our 929 meeting with the and he will see pt first after this meeting.
[2021-09-11] MEDS ORDERED: TORSEMIDE20 MG PO (09:54)
[2021-09-11] MEDS ORDERED: POTASSIUM CHLO10 ME1 PO (09:56)
--- NOTE | 2021-09-11 10:00 | NUR ---
Notified by Dr. Orlando, he has assessed pt and he may dc and go to [facility] today for rehab and safety concerns. Orders and PASRR completed, awaiting covid test as RT was busy, progress notes, PT/OT note printed and all placed into an envelope. Orders and PASSR faxed. Texted Shabnam daughter forgot some of pts belongings and returned home to get his wallet.
--- NOTE | 2021-09-11 11:00 | NUR ---
- Covid test placed in envelope. Daughter has been called x 2 by staff to transport pt.
--- NOTE | 2021-09-11 11:14 | NUR ---
Pt's uses call light to request assistance for pt to use BSC. 2PA with FWW, back brace in place, pt unsteady gait/balance. Large liquid stool. Back to chair with 2PA.
--- NOTE | 2021-09-11 11:30 | NUR ---
Notified by staff [facility] Text[facility] Crystal and gave number for nurse to nurse call to RN.
--- NOTE | 2021-09-11 11:41 | EKG ---
[facility] [address] [place] [address] Signed Normal sinus rhythm Rightward axis Anteroseptal infarct , age undetermined Abnormal ECG When compared with ECG of 29-APR-2021 04:50, Anteroseptal infarct is now present Confirmed by DAFNE WRIGHT MD ([id number]) on 09/11/2021 11:41:42 AM Electronically Signed By: DAFNE WRIGHT MD 09/11/21 1141 PATIENT NAME: ISABEL MUSTAFA Electrocardiogram DATE OF : 43 PHYSICIAN: DAFNE WRIGHT MD REPORT #: [id number] REPORT IS CONFIDENTIAL AND NOT TO BE RELEASED WITHOUT AUTHORIZATION
--- NOTE | 2021-09-11 11:54 | NUR ---
PT DISCHARGED FROM FACILITY. REPORT CALL BY THIS RN TO SAMMY NGUYEN.
--- NOTE | 2021-09-11 12:59 | NUR ---
CONNECTED WITH PT AT ID. PT CHEERFUL, REACHED OUT TO SHAKE HANDS, THANKED ME FOR VISIT. GAVE BLESSING AND ENCOURAGEMENT.
== END 2021-09-11 11:30 | DRG 291 ==
LOC: ED 20:57 → MS 20:58
PROVIDERS: ADMIT Internal Medicine; ATTEND Internal Medicine
DX: I50.33 Acute on chronic diastolic (congestive) heart failure (principal); J96.21 Acute and chronic respiratory failure with hypoxia; J96.22 Acute and chronic respiratory failure with hypercapnia; Z66 Do not resuscitate; Z20.822 Contact with and (suspected) exposure to COVID-19; R55 Syncope and collapse; N40.1 Benign prostatic hyperplasia with lower urinary tract symptoms; E78.5 Hyperlipidemia, unspecified; R35.1 Nocturia; E11.40 Type 2 diabetes mellitus with diabetic neuropathy, unspecified; J44.9 Chronic obstructive pulmonary disease, unspecified; I27.20 Pulmonary hypertension, unspecified; F39 Unspecified mood [affective] disorder; T46.1X5A Adverse effect of calcium-channel blockers, initial encounter; Z88.8 Allergy status to other drugs, medicaments and biological substances; Z91.013 Allergy to seafood; Z79.899 Other long term (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 therapy
CPT/HCPCS: 36415; 70450; 71045; 73560; 80048; 80053; 81001; 82553; 83036; 83605; 83735; 83880; 84484; 85025; 85610; 85730; 87502; 93005; 93010; 93306; 94760; 94762; 97162; 97165; A9270; C9803; J1650; J1815; J1940; U0003

== ENCOUNTER 2021-12-05 00:56 | Emergency (ER) | payer OTHER ==
[~2021-12-05] VITALS: Ht 167.6 cm; Wt 98.0 kg
[~2021-12-05 00:56] MED LIST changes: +ATORVASTATIN CA10 MG PO; +DILTIAZEM 24HR120 MG PO; +FUROSEMIDE40 MG PO; +GABAPENTIN300 MG PO; +POTASSIUM CHLO10 ME1 PO; +TORSEMIDE20 MG PO; +TRULICITY0.75 MG/0. SUB-Q; +VENLAFAXINE H37.5 MG PO
--- OUTSIDE RECORDS SUMMARY | 2021-12-05 00:58 | XMS ---
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 Comfort VISIT COUNT (12 MO.) 3 KYLIE Nolan TOTAL 3 NOTE: Visits indicate total known visits. ED/UCC VISIT TRACKING (12 MO.) 12/05/2021 00:56 [facility] TYPE: Emergency COMPLAINT: - FALL/ SOB 09/07/2021 20:57 [facility] TYPE: Emergency COMPLAINT: - HEAD INJURY 04/29/2021 04:52 [facility] TYPE: Emergency COMPLAINT: - FLU SYMPTOMS INPATIENT VISIT TRACKING (12 MO.) 09/08/2021 10:48 [facility] [place] TYPE: Medical Surgical COMPLAINT: - CHF DIAGNOSES: - Contact with and (suspected) exposure to COVID-19 - Nocturia - Acute and chronic respiratory failure with hypercapnia - Pulmonary hypertension, unspecified - Do not resuscitate - Adverse effect of calcium-channel blockers, initial encounter - Allergy to seafood - Acute and chronic respiratory failure with hypoxia - Other roasterman (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 therapy - Type 2 diabetes mellitus with diabetic neuropathy, unspecified - Unspecified mood [affective] disorder - Acute on chronic diastolic (congestive) heart failure - Benign prostatic hyperplasia with lower urinary tract symptoms - Hyperlipidemia, unspecified - Nocturia - Unspecified mood [affective] disorder - Allergy to seafood - Do not resuscitate - Acute and chronic respiratory failure with hypercapnia - Acute and chronic respiratory failure with hypoxia - Syncope and collapse - Chronic obstructive pulmonary disease, unspecified - Heart failure, unspecified - Acute on chronic diastolic (congestive) heart failure - Other roasterman (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 therapy - Type 2 diabetes mellitus without complications - Contact with and (suspected) exposure to COVID-19 - Benign prostatic hyperplasia with lower urinary tract symptoms - Type 2 diabetes mellitus with diabetic neuropathy, unspecified - Syncope and collapse - Hyperlipidemia, unspecified - Adverse effect of calcium-channel blockers, initial encounter - Allergy status to other drugs, medicaments and biological substances - Pulmonary hypertension, unspecified - Chronic obstructive pulmonary disease, unspecified - Allergy status to other drugs, medicaments and biological substances 05/06/2021 05:12 [facility] TYPE: Internal Medicine DIAGNOSES: - Cellulitis of right toe - Heart failure, unspecified - Guillain-[place] syndrome - Weakness - COVID-19 - Adjustment disorder, unspecified - Unspecified convulsions - Weakness; COVID 04/29/2021 11:29 [facility] TYPE: Medical Surgical COMPLAINT: - COVID, CHF DIAGNOSES: - Other allergy status, other than to drugs and biological substances - Other roasterman (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 therapy - retirement (current) use of oral hypoglycemic drugs - COVID-19 - Chronic obstructive pulmonary disease, unspecified - Other specified postprocedural states - Hyperlipidemia, unspecified - Acquired absence of other specified parts of digestive tract - Chronic diastolic (congestive) heart failure - Type 2 diabetes mellitus without complications - Benign prostatic hyperplasia without lower urinary tract symptoms - Benign prostatic hyperplasia without lower urinary tract symptoms - Atherosclerotic heart disease of [place] coronary artery without angina pectoris - Chronic obstructive pulmonary disease, unspecified - Allergy to seafood - Do not resuscitate - Acute and chronic respiratory failure with hypoxia - Acute and chronic respiratory failure with hypoxia - Chronic obstructive pulmonary disease with (acute) lower respiratory infection - Other allergy status, other than to drugs and biological substances - Encounter for immunization - Type 2 diabetes mellitus without complications - Chronic diastolic (congestive) heart failure - Dependence on supplemental oxygen - Pneumonia due to coronavirus disease 2018 - Hyperlipidemia, unspecified - Do not resuscitate - Allergy to seafood [email or web address]
--- NOTE | 2021-12-05 23:59 | EKG ---
[facility] [address] [place] [address] Signed Normal sinus rhythm Rightward axis Septal infarct (cited on or before 07-SEP-2021) Abnormal ECG When compared with ECG of 07-SEP-2021 21:43, Questionable change in initial forces of Anterior leads ST now depressed in Anterior leads Confirmed by LASHA DENIS MD ([id number]) on 12/05/2021 11:59:27 PM Electronically Signed By: LASHA DENIS MD 12/05/21 2359 PATIENT NAME: ISABEL MUSTAFA Electrocardiogram DATE OF : 43 PHYSICIAN: LASHA DENIS MD REPORT #: [id number] REPORT IS CONFIDENTIAL AND NOT TO BE RELEASED WITHOUT AUTHORIZATION
--- NOTE | 2021-12-09 14:22 | NUR ---
Heart failure ED follow up call. Phone appears not to be working at this time. I get an odd recorded message then a busy signal x2. Called daughter Briana and she said he has been doing well, walking, and no problems with taking medications. She gave the same phone number for him as recorded in [email or web address]
== END 2021-12-05 06:39 | disposition home or self-care (01) ==
LOC: ED 00:56
DX: I50.9 Heart failure, unspecified (principal); S32.19XD Other fracture of sacrum, subsequent encounter for fracture with routine healing; J44.9 Chronic obstructive pulmonary disease, unspecified; E11.9 Type 2 diabetes mellitus without complications; Z86.73 Personal history of transient ischemic attack (TIA), and cerebral infarction without residual deficits; Z91.013 Allergy to seafood; Z88.8 Allergy status to other drugs, medicaments and biological substances; Z79.84 Long term (current) use of oral hypoglycemic drugs; Z79.899 Other long term (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 therapy; Z20.822 Contact with and (suspected) exposure to COVID-19
CPT/HCPCS: 36415; 71045; 72100; 72220; 80053; 83735; 83880; 84484; 85025; 85060; 85379; 87502; 93005; 93010; 94640; 96374; 96375; 99285-25; C9803; J1940; J2930; U0003

== ENCOUNTER 2021-12-29 13:58 | Inpatient (IN) | payer OTHER, MEDICARE ==
[~2021-12-29] VITALS: Ht 167.6 cm; Wt 93.0 kg
--- OUTSIDE RECORDS SUMMARY | 2021-12-29 14:00 | XMS ---
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 Comfort VISIT COUNT (12 MO.) 4 KYLIE Nolan TOTAL 4 NOTE: Visits indicate total known visits. ED/UCC VISIT TRACKING (12 MO.) 12/29/2021 13:58 [facility] TYPE: Emergency COMPLAINT: - TROUBLE BREATHING 12/05/2021 00:56 [facility] TYPE: Emergency COMPLAINT: - FALL/ SOB DIAGNOSES: - Personal history of transient ischemic attack (TIA), and cerebral infarction without residual deficits - Allergy status to other drugs, medicaments and biological substances - Chronic obstructive pulmonary disease, unspecified - Allergy to seafood - Other joint terminal attack controller (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 therapy - Heart failure, unspecified - Type 2 diabetes mellitus without complications - retirement (current) use of oral hypoglycemic drugs - Shortness of breath - Other fracture of sacrum, subsequent encounter for fracture with routine healing - Contact with and (suspected) exposure to COVID-19 09/07/2021 20:57 [facility] TYPE: Emergency COMPLAINT: - HEAD INJURY 04/29/2021 04:52 [facility] TYPE: Emergency COMPLAINT: - FLU SYMPTOMS INPATIENT VISIT TRACKING (12 MO.) 09/08/2021 10:[address] [facility] TYPE: Medical Surgical COMPLAINT: - CHF DIAGNOSES: - Chronic obstructive pulmonary disease, unspecified - Allergy status to other drugs, medicaments and biological substances - Contact with and (suspected) exposure to COVID-19 - Nocturia - Acute and chronic respiratory failure with hypercapnia - Pulmonary hypertension, unspecified - Do not resuscitate - Adverse effect of calcium-channel blockers, initial encounter - Allergy to seafood - Acute and chronic respiratory failure with hypoxia - Other joint terminal attack controller (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 therapy - Type 2 diabetes [...] chronic diastolic (congestive) heart failure - Other group home (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 therapy - Type 2 diabetes [...] and biological substances - Pulmonary hypertension, unspecified 05/06/2021 05:12 [facility] TYPE: Internal Medicine DIAGNOSES: - Weakness; COVID - Cellulitis of right toe - Heart failure, unspecified - Guillain-[place] syndrome - Weakness - COVID-19 - Adjustment disorder, unspecified - Unspecified convulsions 04/29/2021 11:29 [facility] TYPE: Medical Surgical COMPLAINT: - COVID, CHF DIAGNOSES: - Do not resuscitate - Allergy to seafood - Other allergy status, other than to drugs and biological substances - Other group home (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 therapy - joint terminal attack controller (current) use of oral hypoglycemic drugs - [...] tract symptoms - Atherosclerotic heart disease of [place] coronary artery without angina pectoris - Chronic [...] oxygen - Pneumonia due to coronavirus disease 2019 - Hyperlipidemia, unspecified [email or web address]
--- NOTE | 2021-12-29 16:18 | EKG ---
[facility] [address] [place] [address] Signed Sinus rhythm with premature atrial complexes Septal infarct (cited on or before 07-SEP-2021) Abnormal ECG When compared with ECG of 05-DEC-2021 00:58, premature atrial complexes are now present Confirmed by Alan Calderon MD () on 12/29/2021 4:18:13 PM Electronically Signed By: ALAN CALDERON MD 12/29/21 1618 PATIENT NAME: ISABEL MUSTAFA Electrocardiogram DATE OF : 43 PHYSICIAN: ALAN CALDERON MD REPORT #: [id number] REPORT IS CONFIDENTIAL AND NOT TO BE RELEASED WITHOUT AUTHORIZATION
--- NOTE | 2021-12-29 18:10 | NUR ---
76 YEAR OLD MALE PATIENT ADMITTED TO CCU UNDER DR. CALDERON FROM ER VIA STRETCHER WITH DX OF ACUTE HYPOXIC RESP FAILURE/CHF. UPON ADMIT TO CCU PATIENT IS ALERT, COOPERATIVE, ORIENTED. STATES BREATHING IS MUCH BETTER NOW. USES O2 AT 4 LITERS AT HOME AND IS CURRENTLY ON 4 L NC HERE. WAS USING BIPAP IN ER. RAPID RESPONSE WAS CALLED IN ED PATENT HAS SATS IN 60'S ON ADMIT. AT THAT TIME NRBM WAS APPLIED. INC OF URINE ON ADMIT. ADMISSION PROCESS STARTED.
--- NOTE | 2021-12-29 18:15 | NUR ---
SITTING UP IN BED FOR DINNER. PO MEDS GIVEN AND IV ABX HUNG.
--- NOTE | 2021-12-29 19:07 | NUR ---
TO COMMODE TO EXPELL LOOSE STOOL. INCREASED SHORTNESS OF BREATH WITH EXERTION. HR TO 114. REPORT TO NEXT SHIFT.
--- NOTE | 2021-12-29 20:00 | NUR ---
REPORT RECEIVED FROM DAY SHIFT RN. PT IS SITTING UP IN BED, WATCHING TV AND APPEARS COMFORTABLE. TOLERATING O2 VIA NC. VSS. DENIES PAIN/DISCOMFORT. WILL CONTINUE TO MONITOR.
--- NOTE | 2021-12-29 21:45 | NUR ---
PT REQUESTS TO STOP BIPAP AT THIS TIME. [ROVIDED AND PT PLACED ON 4L NC. SPO2 96%. NO OTHER NEEDS. CALL LIGHT IN REACH.
--- NOTE | 2021-12-29 22:12 | NUR ---
PT CALLS TO REQUEST SNACK, PROVIDED. PT REPORTS FEELING SWEATY, LINENS CHANGED, ORAL TEMP 98.1 f., HR 95. URINAL EMPTIED. NO OTHER NEEDS AT THIS TIME. CALL LIGHT IN REINA, RAILS UP.
--- NOTE | 2021-12-29 22:48 | NUR ---
PT CALLS TO HAVE URINAL EMPTIED, PROVIDED. NO OTHER NEEDS AT THIS TIME NC @ 4L , SPO2 94%. CALL LIGHT IN REACH.
--- NOTE | 2021-12-29 23:21 | NUR ---
PT VERBALIZES NEEDS APPROPRIATELY. CALL LIGHT WITHIN REACH. URINAL EMPTIED AND SNACKS PROVIDED PER PT REQUEST. VSS. WILL CONT TO MONITOR.
--- NOTE | 2021-12-30 01:25 | NUR ---
PT CALLS TO HAVE URINAL EMPTIED, PROVIDED. NO OTHER NEEDS AT THIS TIME. NC @ 4L, SPO2 94%. CALL LIGHT IN REACH.
--- NOTE | 2021-12-30 07:30 | NUR ---
REPORT RECIEVED. PATIENT IS RESTFUL IN BED.
--- NOTE | 2021-12-30 08:00 | NUR ---
ASSESSMENT DONE. STATES HE DIDN'T SLEEP WELL LAST NIGHT AT ALL.C/O BEING COLD. WARM BLANKET GIVEN. TALKED WITH PATIENT ABOUT POC FOR DAY, PATIENT IS UNDERSTANDING.ROUTINE MEDICATIONS GIVEN. LASIX 40 MG IV GIVEN. HAS HARSH, CONGESTED, COUGH. DR. CALDERON IN ROOM TO SEE PATIENT.
--- NOTE | 2021-12-30 09:14 | NUR ---
PT CALLED FOR ASSISTANCE UP TO BSC TO HAVE A BOWEL MOVEMENT, LINEN CHANGE DONE AND PT HELPED BACK TO BED.
[2021-12-30] MEDS ORDERED: BENZONATATE200 MG PO (11:35)
[2021-12-30] MEDS ORDERED: DILTIAZEM ER120 MG PO (11:36)
[2021-12-30] MEDS ORDERED: POTASSIUM CHLO10 ME2 PO (11:40)
[2021-12-30] MEDS ORDERED: FUROSEMIDE40 MG PO (11:40)
--- NOTE | 2021-12-30 12:26 | NUR ---
PATIENT SITTING UP IN BED FINISHED WITH LUNCH. VITALS AND I&OS CHARTED. LIGHTS OFF PER PATIENT REQUEST. CALL LIGHT IN EASY REACH, NO OTHER NEEDS AT THIS TIME.
--- NOTE | 2021-12-30 13:00 | NUR ---
ORDERS RECIEVED TO TRANSFER TO MED-SURG. WILL KEEP IN CCU FOR CONVENIENCE.
--- NOTE | 2021-12-30 15:43 | NUR ---
MED REC COMPLETE
--- NOTE | 2021-12-30 16:10 | NUR ---
UP TO CHAIR, USED WALKER. STABLE ON FEET.
--- NOTE | 2021-12-30 16:18 | NUR ---
RESTING, NO DISTRESS NOTED.
--- NOTE | 2021-12-30 17:59 | NUR ---
ASSISTED PT TO BR FOR BOWEL MOVEMENT AND TO BRUSH HIS TEETH.
--- NOTE | 2021-12-30 19:45 | NUR ---
PT SITTING UP IN RECLINER, ALERT AND ORIENTED, DISCUSSED WITH PT THAT STAFF UNABLE TO EXCEPT MEALS ORDERED BY PT COULD APPEAR GIFTS OF MONETARY VALUE, PT VERBALIZED HE UNDERSTOOD AND THIS RN THANKED HIM FOR HIS GESTURE.
--- NOTE | 2021-12-30 20:00 | NUR ---
REPORT RECEIVED FROM DAY SHIFT RN. PT IS SITTING UP IN RECLINER, WATCHING TV. PT APPEARS COMFORTABLE AT THIS TIME. CALL LIGHT AT HAND. NO DISTRESS NOTED. WILL CONT TO MONITOR.
--- NOTE | 2021-12-30 23:00 | NUR ---
PT REMAINS UP IN RECLINER, WATCHING TV AT THIS TIME. PLEASANT MOOD. VERBALIZES NEEDS APPROPRIATELY. CALL LIGHT AT HAND. WILL CONT TO MONITOR.
--- NOTE | 2021-12-31 02:30 | NUR ---
PT IS AWAKE AND IS SITTING UP IN RECLINING CHAIR. SNACKS PROVIDED TO PT PER PT REQUEST. PRN MEDICATIONS ADMINISTERED. VSS. PT REMAINS ON O2 AT 4 LPM VIA NC. CALL LIGHT AT HAND. WILL CONT TO MONITOR.
--- NOTE | 2021-12-31 06:56 | NUR ---
PT USED CALL LIGHT TO REQUEST HELP CLEANING UP URINE ON FLOOR. FLOOR WAS CLEANED. PT'S GOWN AND BED LINEN CHANGED. PT IS UP IN HIS RECLINER WATCHING TV AND DRINKING COFFEE. DENIES PAIN. CALL LIGHT WITHIN REACH. WILL CONT TO MONITOR.
--- NOTE | 2021-12-31 07:34 | NUR ---
REPORT RECIEVED. RESTING IN BED.
--- NOTE | 2021-12-31 08:00 | NUR ---
UP IN CHAIR READY TO TAKE BREAKFAST. HAS OCC HARSH COUGH. ASSESSMENT DONE. TALKED WITH PATIENT ABOUT POC FOR THE DAY. INDICATES UNDERSTANDING.
--- NOTE | 2021-12-31 09:17 | NUR ---
PATIENT AWAKE IN CHAIR, VITALS AND I&OS CHARTED. DR CALDERON IN ROOM AT THIS TIME.
--- NOTE | 2021-12-31 12:07 | NUR ---
SITTING UP IN CHAIR FOR LUNCH. DR. CALDERON HERE TO SEE PATIENT, PLAN IS TO INCREASE RESP TREATMENTS TODAY. POSSIBLE DISCHARGE TOMORROW.
--- NOTE | 2021-12-31 14:00 | NUR ---
REMAINS IN CHAIR. FAMILY MEMBERS ARE IN ROOM. PATIENT IS W/O R/O. NO CHANGES.
--- NOTE | 2021-12-31 16:00 | NUR ---
ASSESSMENT DONE. NO CHANGES. O2 REMAINS AT 4 L NC.
--- NOTE | 2021-12-31 17:55 | NUR ---
TOOK DINNER WELL. HAS BEEN SITTING IN CHAIR ALL DAY AND WATCHING TV. STATES HE IS FEELING BETTER. LESS COUGH. UP TO BR TO EXPELL STOOL WITH UNMEASURED VOID. STABLE ON FEET.
--- NOTE | 2021-12-31 19:03 | NUR ---
NO CHANGES, REPORT TO NEXT SHIFT. PATIENT WISHES TO REMAIN IN CHAIR.
--- NOTE | 2021-12-31 19:40 | NUR ---
PATIENT SITTING UP IN RECLINER, FULL BODY ASSESMENT DONE. PATIENT WATCHING TELEVISION. COMPLAINTS OF IV HURTING. OFFER TO RELOCATE IV, PATIENT STATED " I AM MARINE AND I AM JUST BEING WHINEY" CALL LIGHT WITHIN REACH. NO OTHER NEEDS AT THIS TIME.
--- NOTE | 2021-12-31 22:39 | NUR ---
PATIENT UP TO BEDSIDE, USED CALL LIGHT FOR NURSE ASSIST. PROVIDED BLANKET PADDING TO BED PER PATIENT REQUEST. PATIENT STATES " I FEEL LIKE I COULD GET SOME REST AND I AM GONNA TRY THIS MUD PUDDLE OF A BED" PATIENT APPEARED TO HAVE DYSPNEA WITH EXERTION, BUT APPEARED TO RECOVER LESS THAN A MINUTE AT REST. OXYGEN SATURATION 94% ON 2L NC. LUNG SOUNDS CLEAR IN UPPER LOBES DARREN AND DIMINISHED IN BASES R>L SIDE. PATIENT HAS BEEN USING INCENTIVE SPIRMOMETER AND ACUPELLA. CALL LIGHT WITHIN REACH. NO OTHER NEEDS AT THIS TIME.
--- NOTE | 2022-01-01 02:26 | NUR ---
PATIENT SLEPT FOR ABOUT 4 HOURS IN BED, USED CALL LIGHT TO REQUEST COFFEE. NOW UP TO RECLINER WATCHING TELEVISION. BREATHING IS LABORED, MARGINAL TO BASELINE RR 22, OXYGEN SAT 92% ON 4L SPOT CHECK. TOLERATED ACTIVITY WELL, WHEN NURSE ENTERED ROOM PATIENT ALREADY IN RECLINER. CALL LIGHT WITHIN REACH.
--- NOTE | 2022-01-01 03:34 | NUR ---
PROVIDED SNACK BOX PER PATIENT REQUEST. NO OTHER NEEDS AT THIS TIME.
--- NOTE | 2022-01-01 04:32 | NUR ---
PATIENT SITTING UP WATCHING TELEVISION, PROVIDED WARM BLANKET. SHIFT ASSESMENT DONE, PATIENT BREATHING EVEN AND REGULAR ON 4L NC 95% 02 SAT., VS WNL. PATIENT REPORTS 0/10 PAIN ON PAIN SCALE. CALL LIGHT WITHIN REACH.
--- NOTE | 2022-01-01 07:35 | NUR ---
REPORT RECIEVED. RESTING IN BED WITH TV ON. NO DISTRESS NOTED.
--- NOTE | 2022-01-01 08:00 | NUR ---
DR. DENIS HERE TO SEE PATIENT. ORDERS RECIEVED TO DISCHARGE HOME. PATIENT IS SITTING UP IN CHAIR. READY FOR BREAKFAST. ASSESSMENT DONE.
[2022-01-01] MEDS ORDERED: PREDNISONE20 MG PO (08:13)
--- NOTE | 2022-01-01 08:42 | NUR ---
PATIENT SITTING UP IN CHAIR TRYING TO REACH DAUGHTER BY PHONE, VITALS AND I&OS CHARTED. PATIENT STATED TO THIS ELECTRIC REFRIGERATOR PREPARER HE'D "RATHER GO TO A VET CLINIC THAN TO EVER HAVE TO COME BACK HERE AGAIN.DUE TO BEING "POKED WITH NEEDLES SO OFTEN." WASHCLOTHS PROVIDED FOR PATIENTS USE, THIS ELECTRIC REFRIGERATOR PREPARER WILL ASSIST IF NEEDED. CALL LIGHT IN EASY REACH
--- NOTE | 2022-01-01 08:45 | NUR ---
TOOK BREAKFAST WELL. ROUTINE MEDICATIONS GIVEN, NEB TREATMENT GIVEN TO PATIENT BY RT EARLIER THIS MORNING. FLU VAC GIVEN PER ORDERS.
--- NOTE | 2022-01-01 09:15 | NUR ---
SL LOCK DC'D WITH CATH INTACT.
--- NOTE | 2022-01-01 10:00 | NUR ---
DISCHARGE INSTRUCTIONS GIVEN WITH PATIENT UNDERSTANDING. WILL BE DISCHARGED WHEN FAMILY ARRIVE.
== END 2022-01-01 11:10 | disposition home or self-care (01) | DRG 291 ==
LOC: ED 13:58 → CCU 17:27
PROVIDERS: ADMIT Family Medicine; ATTEND Internal Medicine
PROC: 5A09357 Assistance with Respiratory Ventilation, Less than 24 Consecutive Hours, Continuous Positive Airway Pressure (ICD-10-PCS; principal; 2021-12-29)
DX: I50.33 Acute on chronic diastolic (congestive) heart failure (principal); J96.01 Acute respiratory failure with hypoxia; Z66 Do not resuscitate; Z20.822 Contact with and (suspected) exposure to COVID-19; I25.10 Atherosclerotic heart disease of native coronary artery without angina pectoris; J44.9 Chronic obstructive pulmonary disease, unspecified; E11.9 Type 2 diabetes mellitus without complications; Z99.81 Dependence on supplemental oxygen; Z86.73 Personal history of transient ischemic attack (TIA), and cerebral infarction without residual deficits; Z88.8 Allergy status to other drugs, medicaments and biological substances; Z91.013 Allergy to seafood; Z79.84 Long term (current) use of oral hypoglycemic drugs; Z79.899 Other long term (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 therapy
CPT/HCPCS: 36415; 71045; 80053; 83735; 83880; 84484; 85025; 85060; 87502; 93005; 93010; 94640; 94660; 94667; 94668; 96374; 99285-25; A9270; C9803; J0456; J1650; J1815; J1940; J7060; J7512; U0003

== ENCOUNTER 2022-01-31 21:52 | Emergency (ER) | payer OTHER, MEDICARE ==
[~2022-01-31] VITALS: Ht 152.4 cm; Wt 93.0 kg
[~2022-01-31 21:52] MED LIST changes: +BENZONATATE200 MG PO; +DILTIAZEM ER120 MG PO; +POTASSIUM CHLO10 ME2 PO; +PREDNISONE20 MG PO
--- OUTSIDE RECORDS SUMMARY | 2022-01-31 21:54 | XMS ---
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 Comfort VISIT COUNT (12 MO.) 5 KYLIE Nolan TOTAL 5 NOTE: Visits indicate total known visits. ED/UCC VISIT TRACKING (12 MO.) 01/31/2022 21:53 [facility] [place] TYPE: Emergency COMPLAINT: - SOB 12/29/2021 13:58 [facility] [place] TYPE: Emergency COMPLAINT: - TROUBLE BREATHING 12/05/2021 00:56 [facility] [place] TYPE: Emergency COMPLAINT: - FALL/ SOB DIAGNOSES: - Type 2 diabetes mellitus without complications - detention (current) use of oral hypoglycemic drugs - Shortness of breath - Other fracture of sacrum, subsequent encounter for fracture with routine healing - Contact with and (suspected) exposure to COVID-19 - Personal history of transient ischemic attack (TIA), and cerebral infarction without residual deficits - Allergy status to other drugs, medicaments and biological substances - Chronic obstructive pulmonary disease, unspecified - Allergy to seafood - Other medical terminologist (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 therapy - Heart failure, unspecified 09/07/2021 20:57 [facility] [place] TYPE: Emergency COMPLAINT: - HEAD INJURY 04/29/2021 04:52 [facility] [place] TYPE: Emergency COMPLAINT: - FLU SYMPTOMS INPATIENT VISIT TRACKING (12 MO.) [facility] COMPLAINT: - ACUTE HYPOXIC RESP FAILURE DIAGNOSES: - Dependence on supplemental oxygen - detention (current) use of oral hypoglycemic drugs - Chronic obstructive pulmonary disease, unspecified - Allergy to seafood - Do not resuscitate - Other medical terminologist (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 therapy - Personal history of transient ischemic attack (TIA), and cerebral infarction without residual deficits - Chronic obstructive pulmonary disease, unspecified - Contact with and (suspected) exposure to COVID-19 - Do not resuscitate - Atherosclerotic heart disease of [place] coronary artery without angina pectoris - Dependence on supplemental oxygen - Acute respiratory failure with hypoxia - Type 2 diabetes mellitus without complications - Other [facility] (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 therapy - detention (current) use of oral hypoglycemic drugs - Allergy status to other drugs, medicaments and biological substances - Allergy to seafood - Type 2 diabetes mellitus without complications - Atherosclerotic heart disease of [place] coronary artery without angina pectoris - Contact with and (suspected) exposure to COVID-19 - Personal history of transient ischemic attack (TIA), and cerebral infarction without residual deficits - Acute on chronic diastolic (congestive) heart failure - Acute on chronic diastolic (congestive) heart failure - Allergy status to other drugs, medicaments and biological substances 09/08/2021 10:48 [facility] [place] TYPE: Medical Surgical COMPLAINT: - CHF DIAGNOSES: - Do not resuscitate - Allergy to seafood - Acute and chronic respiratory failure with hypoxia - Syncope and collapse - Acute and chronic respiratory failure with hypercapnia - Heart failure, unspecified - Chronic obstructive pulmonary disease, unspecified - Other medical terminologist (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 therapy - Type 2 diabetes mellitus without complications - Acute on chronic diastolic (congestive) heart failure - Benign prostatic hyperplasia with lower urinary tract symptoms - Contact with and (suspected) exposure to COVID-19 - Type 2 diabetes mellitus with diabetic neuropathy, unspecified - Syncope and collapse - Adverse effect of calcium-channel blockers, initial encounter - Hyperlipidemia, unspecified - Allergy status to other drugs, medicaments and biological substances - Pulmonary hypertension, unspecified - Allergy status to other drugs, medicaments and biological substances - Chronic obstructive pulmonary disease, unspecified - Nocturia - Contact with and (suspected) exposure to COVID-19 - Pulmonary hypertension, unspecified - Do not resuscitate - Acute and chronic respiratory failure with hypercapnia - Allergy to seafood - Adverse effect of calcium-channel blockers, initial encounter - Other [facility] (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 therapy - Type 2 diabetes mellitus with diabetic neuropathy, unspecified - Acute and chronic respiratory failure with hypoxia - Acute on chronic diastolic (congestive) heart failure - Unspecified mood [affective] disorder - Benign prostatic hyperplasia with lower urinary tract symptoms - Hyperlipidemia, unspecified - Unspecified mood [affective] disorder - Nocturia 05/06/2021 05:12 [facility] TYPE: Internal Medicine DIAGNOSES: - COVID-19 - Adjustment disorder, unspecified - Unspecified convulsions - Weakness; COVID - Cellulitis of right toe - Heart failure, unspecified - 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 [place] TYPE: Medical Surgical COMPLAINT: - COVID, CHF DIAGNOSES: - Chronic obstructive pulmonary disease, unspecified - Do not resuscitate - Allergy to seafood - Acute and chronic respiratory failure with hypoxia - Acute and chronic respiratory failure with hypoxia - Other allergy status, other than to drugs and biological substances - Chronic obstructive pulmonary disease with (acute) lower respiratory infection - Type 2 diabetes mellitus without complications - Encounter for immunization - Chronic diastolic (congestive) heart failure - Pneumonia due to coronavirus disease 2018 - Dependence on supplemental oxygen - Hyperlipidemia, unspecified - Allergy to seafood - Do not resuscitate - Other [facility] (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 therapy - Other allergy status, other than to drugs and biological substances - COVID-19 - detention (current) use of oral hypoglycemic drugs - Other specified postprocedural states - Chronic obstructive pulmonary disease, unspecified - Acquired absence of other specified parts of digestive tract - Hyperlipidemia, unspecified - Type 2 diabetes mellitus without complications - Chronic diastolic (congestive) heart failure - Benign prostatic hyperplasia without lower urinary tract symptoms - Atherosclerotic heart disease of [place] coronary artery without angina pectoris - Benign prostatic hyperplasia without lower urinary tract symptoms [email or web address]
[2022-02-01] MEDS ORDERED: LASIX80 MG PO (00:49)
== END 2022-02-01 01:04 | disposition home or self-care (01) ==
LOC: ED 21:52
DX: I50.9 Heart failure, unspecified (principal); Z20.822 Contact with and (suspected) exposure to COVID-19; J44.9 Chronic obstructive pulmonary disease, unspecified; I25.10 Atherosclerotic heart disease of native coronary artery without angina pectoris; E11.9 Type 2 diabetes mellitus without complications; Z88.8 Allergy status to other drugs, medicaments and biological substances; Z91.013 Allergy to seafood; Z79.899 Other long term (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 therapy; Z79.84 Long term (current) use of oral hypoglycemic drugs
CPT/HCPCS: 36415; 71045; 80053; 83880; 87502; 94660; 96374; 96375; 99285-25; C9803; J1940; U0003

== ENCOUNTER 2022-05-15 11:59 | Emergency (ER) | payer OTHER, MEDICARE ==
[~2022-05-15] VITALS: Ht 167.6 cm; Wt 99.8 kg
[~2022-05-15 11:59] MED LIST changes: +LASIX80 MG PO
--- OUTSIDE RECORDS SUMMARY | 2022-05-15 12:02 | XMS ---
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 [facility] (12 MO.) [facility] TOTAL 6 NOTE: Visits indicate total known visits. ED/UCC VISIT TRACKING (12 MO.) 05/15/2022 12:00 [facility] [place] TYPE: Emergency COMPLAINT: - SHORTNESS OF BREATH 02/27/2022 17:18 [facility] [place] TYPE: Emergency DIAGNOSES: - Personal history of other diseases of the circulatory system - Dizziness - Dizziness and giddiness - Hypokalemia - Dependence on supplemental oxygen 01/31/2022 21:53 [facility] [place] TYPE: Emergency COMPLAINT: - SOB DIAGNOSES: - Type 2 diabetes mellitus without complications - Shortness of breath - Atherosclerotic heart disease of [place] coronary artery without angina pectoris - Chronic obstructive pulmonary disease, unspecified - Other termite helper (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 therapy - Heart failure, unspecified - care home (current) use of oral hypoglycemic drugs - Allergy status to other drugs, medicaments and biological substances - Contact with and (suspected) exposure to COVID-19 - Allergy to seafood 12/29/2021 13:58 [facility] [place] TYPE: Emergency COMPLAINT: - TROUBLE BREATHING 12/05/2021 00:56 [facility] [place] TYPE: Emergency COMPLAINT: - FALL/ SOB DIAGNOSES: - Contact with and (suspected) exposure to COVID-19 - Personal history of transient ischemic attack (TIA), and cerebral infarction without residual deficits - Allergy status to other drugs, medicaments and biological substances - Chronic obstructive pulmonary disease, unspecified - Allergy to seafood - Other senior living (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 therapy - Heart failure, unspecified - Type 2 diabetes mellitus without complications - 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 - Shortness of breath - Other fracture of sacrum, subsequent encounter for fracture with routine healing 09/07/2021 20:57 [facility] [place] TYPE: Emergency COMPLAINT: - HEAD INJURY INPATIENT VISIT TRACKING (12 MO.) 12/29/2021 17:27 [facility] [place] TYPE: Critical Care COMPLAINT: - ACUTE HYPOXIC RESP FAILURE DIAGNOSES: - Atherosclerotic heart disease of [place] coronary artery without angina pectoris - Do not resuscitate - Dependence on supplemental oxygen - Type 2 diabetes mellitus without complications - Acute respiratory failure with hypoxia - Other senior living (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 therapy - Allergy status to other drugs, medicaments and biological substances - care home (current) use of oral hypoglycemic drugs - Allergy to seafood - Atherosclerotic heart disease of [place] coronary artery without angina pectoris - Type 2 diabetes mellitus without complications - Personal history of transient ischemic attack (TIA), and cerebral infarction without residual deficits - Contact with and (suspected) exposure to COVID-19 - Acute on chronic diastolic (congestive) heart failure - Allergy status to other drugs, medicaments and biological substances - Acute on chronic diastolic (congestive) heart failure - Dependence on supplemental oxygen - Chronic obstructive pulmonary disease, unspecified - care home (current) use of oral hypoglycemic drugs - Allergy to seafood - Other termite helper (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 therapy - Do not resuscitate - Chronic obstructive pulmonary disease, unspecified - Personal history of transient ischemic attack (TIA), and cerebral infarction without residual deficits - Contact with and (suspected) exposure to COVID-19 09/08/2021 10:[address] [facility] [place] TYPE: Medical Surgical COMPLAINT: - CHF DIAGNOSES: - Hyperlipidemia, unspecified - Adverse effect of [...] chronic respiratory failure with hypoxia - Other termite helper (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 therapy - Type 2 diabetes [...] chronic diastolic (congestive) heart failure - Other senior living (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 therapy - Type 2 diabetes mellitus without complications - Contact with and (suspected) exposure to COVID-19 - Benign prostatic hyperplasia with lower urinary tract symptoms - Type 2 diabetes mellitus with diabetic neuropathy, unspecified - Syncope and collapse [email or web address]
--- NOTE | 2022-05-16 21:44 | EKG ---
[facility] [address] [place] [address] Signed Atrial fibrillation Rightward axis Septal infarct (cited on or before 07-SEP-2021) Abnormal ECG When compared with ECG of 29-DEC-2021 14:43, Atrial fibrillation has replaced Sinus rhythm T wave inversion now evident in Inferior leads Nonspecific T wave abnormality now evident in Anterior leads Confirmed by LASHA DENIS MD ([id number] on 05/16/2022 9:44:03 PM Electronically Signed By: LASHA DENIS MD 05/16/222143 PATIENT NAME: ISABEL MUSTAFA Electrocardiogram DATE OF : 43 PHYSICIAN: LASHA DENIS MD REPORT #: [id number] REPORT IS CONFIDENTIAL AND NOT TO BE RELEASED WITHOUT AUTHORIZATION
== END 2022-05-15 19:20 | disposition short-term general hospital (02) ==
LOC: ED 11:59
DX: I21.4 Non-ST elevation (NSTEMI) myocardial infarction (principal); J44.9 Chronic obstructive pulmonary disease, unspecified; I50.9 Heart failure, unspecified; I25.10 Atherosclerotic heart disease of native coronary artery without angina pectoris; E11.9 Type 2 diabetes mellitus without complications; Z91.013 Allergy to seafood; Z88.8 Allergy status to other drugs, medicaments and biological substances; Z79.899 Other long term (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 therapy; Z79.84 Long term (current) use of oral hypoglycemic drugs; Z20.822 Contact with and (suspected) exposure to COVID-19
CPT/HCPCS: 36415; 71045; 80053; 83735; 83880; 84484; 85025; 87502; 93005; 93010; 96374; 96375; 99285-25; C9803; J1940; J2930; U0003